=== PATIENT | female | born 1945 | race Hispanic/Latino ===

== ENCOUNTER 2017-08-27 12:26 | Outpatient (CLI) | payer MEDICARE ==
--- NOTE | 2017-09-02 18:47 | Magnetic Resonance Report ---
MR scan of the cranium was performed without contrast. Pulse sequences included: 1. T1 weighted sagittal and axial images without contrast 2. T2 weighted axial and coronal images 3. FLAIR axial images 4. Diffusion-weighted axial images 5. Apparent diffusion coefficient images Views of the posterior fossa showed a normal craniocervical junction. Cerebellar pontine angles were normal with normal seventh-eighth nerve complexes. Brainstem showed an area of increased signal in the left anterior jose ramon as well as some increased signal in the basis pontis in addition to increased signal in the mary cerebri. The cerebellum showed moderate atrophy. The ventricular system showed moderate dilatation but no distortion. Images of the hemispheres showed large areas of atrophy in the frontal lobes especially in the anterior poles. Temporal atrophy was also seen. Moderate white matter changes were present in the periventricular white matter most consistent with araiosis. Sinuses, flow voids in the [place], orbits, pituitary and basal ganglia were normal. Impression: Abnormal MR scan of the cranium without contrast. a. 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 ventricular dilation c. extensive atrophy of the frontal lobes and to some extent temporal lobes r/o fronto temporal atrophy (Pick's disease) this study was compared to the patient's previous mr of . The atrophy and the araiosis have progressed.
== END 2017-08-27 12:27 | disposition home or self-care (01) ==
LOC: SPVIMAG 12:26
PROVIDERS: ATTEND Specialist
DX: G31.89 Other specified degenerative diseases of nervous system (principal); G93.89 Other specified disorders of brain; R26.89 Other abnormalities of gait and mobility
CPT/HCPCS: 70551

== ENCOUNTER 2019-11-07 18:39 | Inpatient (IN) | payer MEDICARE ==
--- NOTE | 2019-11-07 19:18 | Event Note ---
ED Screening Note Date of service: 11/07/19 Time: 19:15 ED Screening Note: Pt complains of episode of difficulty with speech at about 3:30 pm hx of TIA +THURSTON x 3 days This initial assessment/diagnostic orders/clinical plan/treatment(s) is/are subject to change based on patients health status, clinical progression and re- assessment by fellow clinical providers in the ED. Further treatment and workup at subsequent clinical providers discretion. Patient/guardian urged not to elope from the ED as their condition may be serious if not clinically assessed and managed. Initial orders include: CT labs CXR
--- NOTE | 2019-11-07 19:59 | Cat Scan Report ---
NONENHANCED CT SCAN OF THE HEAD: INDICATION / CLINICAL INFORMATION: 74 years Female; headache, slurred speech at 3:30 pm. TECHNIQUE: Routine CT head without contrast. All CT scans at this location are performed using CT dos e reduction for ALARA by means of automated exposure control. COMPARISON: MR scan of the brain from 04/16/2016 FINDINGS: BRAIN / INTRACRANIAL CONTENTS: No acute hemorrhage, mass effect, midline shift, hydrocephalus, or ac [place], large territorial infarct. Patchy areas of volume loss is seen along the lateral convexity in benjamin th cerebral hemispheres. These remain unchanged.. As seen in the previous MRI scan, periventricular w lula matter low density areas are seen in both cerebral hemispheres due to microvascular faint angiop athy. High convexity cortical sulci are normal. Volume loss is seen in the cerebellar vermis and cerebellar hemispheres. Volume loss in the cerebella r vermis has progressed since the MRI scan. Pontine ischemia seen in the MRI scan is not obvious in t he CT. CRANIOCERVICAL JUNCTION: No significant abnormality. ORBITS: No significant abnormality of visualized orbits. SINUSES / MASTOIDS: No significant abnormality of the visualized paranasal sinuses or mastoid air lucius ls. ADDITIONAL FINDINGS: None. IMPRESSION: No hemorrhage; no stroke mimics; no CT findings to suggest acute territorial infarction. ER physician informed at 6:54 PM Central standard time Signer Name: Shayla Segura MD Signed: 11/07/2019 7:54 PM Workstation Name: [id number]
--- NOTE | 2019-11-07 20:08 | XRay Report ---
CHEST 2 VIEWS INDICATION: chest pain. COMPARISON: None. FINDINGS: Support devices: None. Heart: Within normal limits. Lungs/Pleura: No acute air space or interstitial disease. No significant pleural effusion. IMPRESSION: No acute findings. Signer Name: Ward Fraser MD Signed: 11/07/2019 8:04 PM Workstation Name: [id number]
[2019-11-07 20:14] LABS: Basophils # (Auto) 0.1 K/mm3 (0.0-0.1); Basophils % (Auto) 0.5 % (0.0-1.8); Eosinophils # (Auto) 0.3 K/mm3 (0.0-0.4); Eosinophils % (Auto) 2.5 % (0.0-4.3); Hematocrit 47.2 % (30.3-42.9); Hemoglobin 15.6 gm/dl (10.1-14.3); Lymphocytes # (Auto) 3.8 K/mm3 (1.2-5.4); Lymphocytes % (Auto) 37.6 % (13.4-35.0); Mean Corpuscular HGB Conc 33 % (30-34); Mean Corpuscular Volume 90 fl (79-97); Monocytes # (Auto) 0.7 K/mm3 (0.0-0.8); Monocytes % (Auto) 7.2 % (0.0-7.3); Platelet Count 225 K/mm3 (140-440); Red Blood Count 5.25 M/mm3 (3.65-5.03); Red Cell Distribution Width 14.2 % (13.2-15.2)
[2019-11-07 20:43] LABS: Alanine Aminotransferase 13 units/L (7-56); BUN/Creatinine Ratio 16; Blood Urea Nitrogen 11 mg/dL (7-17); Calcium 9.9 mg/dL (8.4-10.2); Hemolysis Index 8
[2019-11-07] MEDS ORDERED: ASPIRIN 325 MG TAB PO ONE (22:01)
--- NOTE | 2019-11-07 23:03 | Emergency Department Report ---
ED Neuro Deficit HPI - General Chief Complaint: Neuro Symptoms/Deficit Stated Complaint: HBP/POSS TIA Time Seen by Provider: 11/07/19 19:14 Source: patient, EMS Mode of arrival: Ambulatory Limitations: No Limitations - History of Present Illness Initial Comments: Patient is a 74-year-old female with past medical history of hypertension and TIAs in the past who is complaining of some left arm weakness and slurred speech earlier today. Patient states when she woke this morning approximately 8 AM she has some left arm weakness and heaviness. Patient states within the hour after waking the symptoms resolved. Around 2 PM patient was on the phone with a friend telling her about the weakness she had that morning and her friend noticed that she has slurred speech. Patient states this also resolved spontaneously as well. Patient's friend urged her to come to the emergency department. Patient stated when to the fire department first and her blood pressure was noted to be elevated to approximately 190 systolic. Patient denies chest pain shortness of breath or focal neurological symptoms at this time. Patient states all of her weakness and slurred speech has completely resolved. Patient states she does have hypertension and is compliant with her medications. - Related Data Allergies/Adverse Reactions: Allergies Allergy/AdvReac Type Severity Reaction Status Date / Time meperidine HCl [From Demerol] Allergy Vomiting Unverified 04/16/16 16:23 ED Review of Systems ROS: Stated complaint: HBP/POSS TIA Other details as noted in HPI Comment: All other systems reviewed and negative ED Past Medical Hx - Past Medical History Previous Medical History?: Yes Hx Hypertension: Yes Additional medical history: TIA, Glycoma, - Surgical History Past Surgical History?: No - Social History Smoking Status: Never Smoker Substance Use Type: None ED Neuro Physical Exam - General Limitations: No Limitations General appearance: alert, in no apparent distress Suspected Stroke: No - Head Head exam: Present: atraumatic, normocephalic - Eye Eye exam: Present: normal appearance, PERRL, EOMI - ENT ENT exam: Present: normal orophraynx, mucous membranes moist - Neck Neck exam: Present: normal inspection - Respiratory Respiratory exam: Present: normal lung sounds bilaterally. Absent: respiratory distress, wheezes, rales, rhonchi - Cardiovascular Cardiovascular Exam: Present: regular rate, normal rhythm, normal heart sounds. Absent: systolic murmur, diastolic murmur, rubs, gallop - GI/Abdominal GI/Abdominal exam: Present: soft, normal bowel sounds. Absent: distended, tenderness, guarding - Extremities Exam Extremities exam: Present: normal inspection - Back Exam Back exam: Present: normal inspection - Neurological Exam Neurological exam: Present: alert, oriented X3 - NIHSS Assessment Interval: Baseline 1a. Level of Consciousness: alert/keenly responsive 1b. LOC Questions: answers both correctly 1c. LOC Commands: performs tasks correctly 2. Best Gaze: normal 3. Visual: no visual loss 4. Facial Palsy: normal symmetrical movement 5b. Motor Arm Right: no drift 5a. Motor Arm Left: no drift 6a. Motor Leg Left: no drift 6b. Motor Leg Right: no drift 7. Limb Ataxia: absent 8. Sensory: normal 9. Best Language: no aphasia 10. Dysarthria: normal 11. Extinction/Inattention: no abnormality Total Score: 0 Stroke Severity: No Stroke Symptoms - Psychiatric Psychiatric exam: Present: normal affect, normal mood - Skin Skin exam: Present: warm, dry, intact, normal color. Absent: rash ED Course Vital Signs 11/07/19 11/07/19 19:22 22:42 Temperature 98.0 F 98.4 F Pulse Rate 74 81 Respiratory 20 13 Rate Blood Pressure 200/97 187/102 [Left] O2 Sat by Pulse 98 Oximetry - Lab Data Result diagrams: 11/07/19 19:59 11/07/19 19:59 Lab Results 11/07/19 11/07/19 Range/Units 19:59 19:59 WBC 10.2 (4.5-11.0) K/mm3 RBC 5.25 H (3.65-5.03) M/mm3 Hgb 15.6 H (10.1-14.3) gm/dl Hct 47.2 H (30.3-42.9) % MCV 90 (79-97) fl MCH 30 (28-32) pg MCHC 33 (30-34) % RDW 14.2 (13.2-15.2) % Plt Count 225 (140-440) K/mm3 Lymph % (Auto) 37.6 H (13.4-35.0) % [place] % (Auto) 7.2 (0.0-7.3) % Eos % (Auto) 2.5 (0.0-4.3) % Baso % (Auto) 0.5 (0.0-1.8) % Lymph # 3.8 (1.2-5.4) K/mm3 [place] # 0.7 (0.0-0.8) K/mm3 Eos # 0.3 (0.0-0.4) K/mm3 Baso # 0.1 (0.0-0.1) K/mm3 Seg Neutrophils % 52.2 (40.0-70.0) % Seg Neutrophils # 5.3 (1.8-7.7) K/mm3 Sodium 143 (137-145) mmol/L Potassium 4.1 (3.6-5.0) mmol/L Chloride 102.1 (98-107) mmol/L Carbon Dioxide 26 (22-30) mmol/L Anion Gap 19 mmol/L BUN 11 (7-17) mg/dL Creatinine 0.7 (0.7-1.2) mg/dL Estimated GFR > 60 ml/min BUN/Creatinine Ratio 16 % Glucose 124 H (65-100) mg/dL Calcium 9.9 (8.4-10.2) mg/dL Total Bilirubin 0.30 (0.1-1.2) mg/dL AST 20 (5-40) units/L ALT 13 (7-56) units/L Alkaline Phosphatase 89 (35-129) units/L Troponin T < 0.010 (0.00-0.029) ng/mL Total Protein 7.5 (6.3-8.2) g/dL Albumin 4.0 (3.9-5) g/dL Albumin/Globulin Ratio 1.1 % - EKG Data -: EKG Interpreted by Pr EKG shows normal: sinus rhythm, axis, intervals, QRS complexes, ST-T waves Rate: normal Interpretation: normal EKG (so for isolated PAC) - Radiology Data Ordering Physician: KATHARINE KEBEDE Date of Service: 11/07/19 Procedure(s): CT head/brain wo con Accession Number(s): [id number] cc: KATHARINE KEBEDE NONENHANCED CT SCAN OF THE HEAD: INDICATION / CLINICAL INFORMATION: 74 years Female; headache, slurred speech at 3:30 pm. TECHNIQUE: Routine CT head without contrast. All CT scans at this location are performed using CT dose reduction for ALARA by means of automated exposure control. COMPARISON: MR scan of the brain from 04/16/2016 FINDINGS: BRAIN / INTRACRANIAL CONTENTS: No acute hemorrhage, mass effect, midline shift, hydrocephalus, or acute, large territorial infarct. Patchy areas of volume loss is seen along the lateral convexity in both cerebral hemispheres. These remain unchanged.. As seen in the previous MRI scan, periventricular white matter low density areas are seen in both cerebral hemispheres due to microvascular faint angiopathy. High convexity cortical sulci are normal. Volume loss is seen in the cerebellar vermis and cerebellar hemispheres. Volume loss in the cerebellar vermis has progressed since the MRI scan. Pontine ischemia seen in the MRI scan is not obvious in the CT. CRANIOCERVICAL JUNCTION: No significant abnormality. ORBITS: No significant abnormality of visualized orbits. SINUSES / MASTOIDS: No significant abnormality of the visualized paranasal sinuses or mastoid air cells. ADDITIONAL FINDINGS: None. IMPRESSION: No hemorrhage; no stroke mimics; no CT findings to suggest acute territorial infarction. ER physician informed at 6:54 PM Central standard time Signer Name: Shayla Segura MD Signed: 11/07/2019 7:54 PM Workstation Name: [id number] - Medical Decision Making Patient is a 74-year-old female with history of hypertension who had 2 episodes of neurological deficits today. Both of these episodes have resolved. Patient admitted for observation. Critical care attestation.: If time is entered above; I have spent that time in minutes in the direct care of this critically ill patient, excluding procedure time. ED Disposition Clinical Impression: TIA (transient ischemic attack), Hypertensive urgency, malignant Disposition: DC-09 OP ADMIT IP TO THIS HOSP Is pt being admited?: Yes Does the pt Need Aspirin: No Condition: Stable Time of Disposition: 23:04
[2019-11-07] MEDS ORDERED: MAGNESIUM HYDROXIDE (MOM) ORAL LIQD UDC PO PRN (23:41)
[2019-11-07] MEDS ORDERED: ONDANSETRON 4 MG/2 ML INJ IV PRN (23:41)
--- NOTE | 2019-11-07 23:43 | History and Physical Report ---
History of Present Illness History of present illness: 74-year-old male with history of hypertension, TIA states she is compliant with medication comes emergency room for evaluation. She stated that she started having left arm numbness that lasted for 30 minutes after which it subsided. Around 330 and she is developed slurred speech she called her friend who urged her to go to the emergency room for evaluation. However they went to the fire station her blood pressure was very high so they sent her to the emergency room. Slurred speech lasted for an hour, she states she is back to baseline. Patient is being admitted for TIA work, hypertension malignant Review Of Systems: Constitutional: no weight loss, chills Ears, eyes, nose, mouth and throat: no nasal congestion, no nasal discharge, no sinus pressure, blurry vision, diplopia Neck: No neck pain or rigidity. Cardiovascular: No palpitations, chest pain Respiratory: No cough, shortness of breath Gastrointestinal: No hematochezia Genitourinary : no dysuria, frequency , hematuria Musculoskeletal: no muscle ache , joint pain Integumentary: no rash, no pruritis Neurological: no parathesias, focal weakness Endocrine: no cold or heat intolerance, no polyuria or polydipsia Hematologic/Lymphatic: no easy bruising, no easy bleeding, no gland swelling Allergic/Immunologic: no urticaria, no angioedema. PAST MEDICAL HISTORY:hypertension, TIA PAST SURGICAL HISTORY: Hysterectomy, cholecystectomy FAMILY HISTORY:hypertension, diabetes SOCIAL HISTORY: no tobacco, no drugs, alcohol Medications and Allergies Allergies Allergy/AdvReac Type Severity Reaction Status Date / Time meperidine HCl [From Demerol] Allergy Vomiting Verified 11/07/19 23:56 Exam - Physical Exam Narrative exam: Gen. appearance: Patient lying in bed, no apparent distress HEENT: Normocephalic, atraumatic, pupils equally round and reactive to light, extraocular movement intact, and no sclericterus,. No JVD or thyromegaly or nodule,neck supple, no carotid bruit ,mucous membranes moist, no exudate or erythema Heart: S1, S2, regular rate and rhythm Lungs: Clear to auscultation bilaterally, breathing comfortable Abdomen: Positive bowel sounds, nontender, nondistended, no organomegaly Extremity: No edema, cyanosis, clubbing Skin: No rash, nodules, warm, dry Neuro: Oriented 3, cranial nerves II-12 intact, speech is fluent, motor and sensory intact - Constitutional Vitals: Temp Pulse Resp BP Pulse Ox 98.4 F 81 13 185/92 98 11/07/19 22:42 11/07/19 23:08 11/07/19 22:42 11/07/19 23:08 11/07/19 19:22 Results - Labs CBC & Chem 7: 11/07/19 19:59 11/07/19 19:59 Labs: Abnormal lab results 11/07/19 11/07/19 Range/Units 19:59 19:59 RBC 5.25 H (3.65-5.03) M/mm3 Hgb 15.6 H (10.1-14.3) gm/dl Hct 47.2 H (30.3-42.9) % Lymph % (Auto) 37.6 H (13.4-35.0) % Glucose 124 H (65-100) mg/dL - Imaging and Cardiology Chest x-ray: report reviewed CT Scan - head: report reviewed Assessment and Plan Assessment Acute TIA Obtain MRI of the head and neck, echo Do neuro checks consult screen Consult neurology, PT, OT Start aspirin, statin, check lipid profile Hypertension Start IV hydralazine for blood pressure control DVT prophylax
[2019-11-08] MEDS ORDERED: hydrALAZINE 20 MG/1 ML INJ ONE (01:10)
[2019-11-08] MEDS: hydrALAZINE 20 MG/1 ML INJ IV PRN ×3 (01:42→21:25)
[2019-11-08] MEDS ORDERED: ONDANSETRON 4 MG/2 ML INJ ONE (02:23)
[2019-11-08] MEDS ORDERED: ACETAMINOPHEN 325 MG TAB ONE (08:09)
[2019-11-08] MEDS: ACETAMINOPHEN 325 MG TAB PO PRN ×2 (08:11→22:27)
--- NOTE | 2019-11-08 08:27 | Progress Note ---
Subjective Date of service: 11/08/19 Interval history: neurology note reviewed over all the labs / Imaging studies / clinical notes / course of care in the ED the CT shows 4 plus very striking severe degenerative changes both yun and white mattwer... would be very difficult to detect stroke since there is so little intact normal brain present ,,, brain is profoundly atrophic Objective - Vital Sign Vital Signs - 12hr 11/07/19 11/07/19 11/07/19 22:38 22:42 22:45 Temperature 98.4 F Pulse Rate 81 77 Respiratory 13 14 Rate Blood Pressure 149/83 191/92 Blood Pressure 187/102 [Left] O2 Sat by Pulse 93 88 Oximetry 11/07/19 11/07/19 11/07/19 23:01 23:08 23:15 Temperature Pulse Rate 80 81 76 Respiratory 17 17 Rate Blood Pressure 180/93 185/92 159/76 Blood Pressure [Left] O2 Sat by Pulse 97 97 Oximetry 11/07/19 11/07/19 11/08/19 23:31 23:45 00:01 Temperature Pulse Rate 77 74 78 Respiratory 13 15 16 Rate Blood Pressure 201/107 192/88 167/84 Blood Pressure [Left] O2 Sat by Pulse 92 98 97 Oximetry 11/08/19 11/08/19 11/08/19 00:15 00:31 00:45 Temperature Pulse Rate 80 84 84 Respiratory 13 16 14 Rate Blood Pressure 171/94 197/70 193/85 Blood Pressure [Left] O2 Sat by Pulse 97 98 99 Oximetry 11/08/19 11/08/19 11/08/19 01:01 01:15 01:30 Temperature Pulse Rate 87 80 84 Respiratory 12 16 20 Rate Blood Pressure 185/86 190/88 176/84 Blood Pressure [Left] O2 Sat by Pulse 99 97 96 Oximetry 11/08/19 11/08/19 11/08/19 01:42 01:45 02:00 Temperature Pulse Rate 84 87 90 Respiratory 18 13 Rate Blood Pressure 193/85 162/82 146/77 Blood Pressure [Left] O2 Sat by Pulse 97 97 Oximetry 11/08/19 11/08/19 11/08/19 02:15 02:31 02:45 Temperature Pulse Rate 100 H 88 89 Respiratory 13 20 13 Rate Blood Pressure 146/77 163/67 164/76 Blood Pressure [Left] O2 Sat by Pulse 96 95 97 Oximetry 11/08/19 11/08/19 11/08/19 03:00 03:15 03:30 Temperature Pulse Rate 90 89 94 H Respiratory 15 16 17 Rate Blood Pressure 163/77 176/81 168/84 Blood Pressure [Left] O2 Sat by Pulse 95 95 96 Oximetry 11/08/19 11/08/19 11/08/19 03:45 04:00 04:15 Temperature Pulse Rate 99 H 97 H 94 H Respiratory 18 17 19 Rate Blood Pressure 168/84 189/77 183/81 Blood Pressure [Left] O2 Sat by Pulse 96 96 96 Oximetry 11/08/19 11/08/19 11/08/19 04:30 04:45 05:01 Temperature Pulse Rate 100 H 106 H 105 H Respiratory 16 18 16 Rate Blood Pressure 190/82 213/84 172/73 Blood Pressure [Left] O2 Sat by Pulse 96 95 96 Oximetry 11/08/19 11/08/19 11/08/19 05:15 05:31 05:45 Temperature Pulse Rate 106 H 109 H 109 H Respiratory 22 15 15 Rate Blood Pressure 170/93 200/87 171/92 Blood Pressure [Left] O2 Sat by Pulse 96 96 97 Oximetry 11/08/19 07:42 Temperature Pulse Rate 112 H Respiratory 21 Rate Blood Pressure Blood Pressure 121/61 [Left] O2 Sat by Pulse 97 Oximetry - Laboratory Findings CBC and BMP: 11/07/19 19:59 11/07/19 19:59 Abnormal Lab Findings: Abnormal Labs 11/07/19 11/07/19 19:59 19:59 RBC 5.25 H Hgb 15.6 H Hct 47.2 H Lymph % (Auto) 37.6 H Glucose 124 H
[2019-11-08 09:40] LABS: Chol/HDL Ratio 2.08 %
[2019-11-08] MEDS: ASPIRIN 325 MG TAB PO SCH (10:35)
[2019-11-08] MEDS ORDERED: ASPIRIN 325 MG TAB ONE (10:41)
--- NOTE | 2019-11-08 17:12 | Progress Note ---
Assessment and Plan Assessment and plan: Patient is a 74-year-old female with past medical history of hypertension and TIAs in the past who is complaining of some left arm weakness and slurred speech earlier today. Patient states when she woke this morning approximately 8 AM she has some left arm weakness and heaviness. Patient states within the hour after waking the symptoms resolved. Around 2 PM patient was on the phone with a friend telling her about the weakness she had that morning and her friend noticed that she has slurred speech. Patient states this also resolved spontaneously as well. Was admitted to the hospital for stroke protocol, not a candidate for TPA --Acute CVA/ TIA Not a candidate for TPA Aspirin and statin Neuro workup, MRI/MRA carotid Doppler echocardiogram Urology consult PT OT rehabilitation Lipid panel, permissive hypertension --Hypertension; Per stroke protocol --Obesity; BMI 34.6 Advised weight reduction and medically stable --DVT prophylaxis; Lovenox Monitor clinically and adjust management as needed Plan of care is reviewed with the patient and her nurse History Interval history: Patient seen and examined medical records reviewed Admitted with neuro symptoms Patient has no new complaints weakness significantly improved Hospitalist Physical - Constitutional Vitals: Temp Pulse Resp BP Pulse Ox 98.0 F 92 H 18 188/108 98 11/08/19 11:55 11/08/19 13:31 11/08/19 13:31 11/08/19 12:23 11/08/19 13:31 General appearance: Present: no acute distress, well-nourished - EENT Eyes: Present: PERRL, EOM intact - Neck Neck: Present: supple, normal ROM - Respiratory Respiratory effort: normal Respiratory: bilateral: diminished, negative: rales, rhonchi, wheezing - Cardiovascular Rhythm: regular Heart Sounds: Present: S1 & S2 - Extremities Extremities: no ischemia, No edema - Abdominal General gastrointestinal: soft, non-tender, non-distended, normal bowel sounds - Integumentary Integumentary: Present: clear, warm - Psychiatric Psychiatric: appropriate mood/affect, cooperative - Neurologic Neurologic: CNII-XII intact, moves all extremities Results - Labs CBC & Chem 7: 11/07/19 19:59 11/07/19 19:59 Labs: Laboratory Last Values WBC 10.2 K/mm3 (4.5-11.0) 11/07/19 19:59 RBC 5.25 M/mm3 (3.65-5.03) H 11/07/19 19:59 Hgb 15.6 gm/dl (10.1-14.3) H 11/07/19 19:59 Hct 47.2 % (30.3-42.9) H 11/07/19 19:59 MCV 90 fl (79-97) 11/07/19 19:59 MCH 30 pg (28-32) 11/07/19 19:59 MCHC 33 % (30-34) 11/07/19 19:59 RDW 14.2 % (13.2-15.2) 11/07/19 19:59 Plt Count 225 K/mm3 (140-440) 11/07/19 19:59 Lymph % (Auto) 37.6 % (13.4-35.0) H 11/07/19 19:59 [place] % (Auto) 7.2 % (0.0-7.3) 11/07/19 19:59 Eos % (Auto) 2.5 % (0.0-4.3) 11/07/19 19:59 Baso % (Auto) 0.5 % (0.0-1.8) 11/07/19 19:59 Lymph # 3.8 K/mm3 (1.2-5.4) 11/07/19 19:59 [place] # 0.7 K/mm3 (0.0-0.8) 11/07/19 19:59 Eos # 0.3 K/mm3 (0.0-0.4) 11/07/19 19:59 Baso # 0.1 K/mm3 (0.0-0.1) 11/07/19 19:59 Seg Neutrophils % 52.2 % (40.0-70.0) 11/07/19 19:59 Seg Neutrophils # 5.3 K/mm3 (1.8-7.7) 11/07/19 19:59 Sodium 143 mmol/L (137-145) 11/07/19 19:59 Potassium 4.1 mmol/L (3.6-5.0) 11/07/19 19:59 Chloride 102.1 mmol/L (98-107) 11/07/19 19:59 Carbon Dioxide 26 mmol/L (22-30) 11/07/19 19:59 Anion Gap 19 mmol/L 11/07/19 19:59 BUN 11 mg/dL (7-17) 11/07/19 19:59 Creatinine 0.7 mg/dL (0.7-1.2) 11/07/19 19:59 Estimated GFR > 60 ml/min 11/07/19 19:59 BUN/Creatinine Ratio 16 % 11/07/19 19:59 Glucose 124 mg/dL (65-100) H 11/07/19 19:59 Calcium 9.9 mg/dL (8.4-10.2) 11/07/19 19:59 Total Bilirubin 0.30 mg/dL (0.1-1.2) 11/07/19 19:59 AST 20 units/L (5-40) 11/07/19 19:59 ALT 13 units/L (7-56) 11/07/19 19:59 Alkaline Phosphatase 89 units/L (35-129) 11/07/19 19:59 Troponin T < 0.010 ng/mL (0.00-0.029) 11/07/19 19:59 Total Protein 7.5 g/dL (6.3-8.2) 11/07/19 19:59 Albumin 4.0 g/dL (3.9-5) 11/07/19 19:59 Albumin/Globulin Ratio 1.1 % 11/07/19 19:59 Triglycerides 117 mg/dL (2-149) 11/08/19 08:52 Cholesterol 146 mg/dL (50-199) 11/08/19 08:52 LDL Cholesterol Direct 66 mg/dL (50-130) 11/08/19 08:52 HDL Cholesterol 70 mg/dL (40-59) H 11/08/19 08:52 Cholesterol/HDL Ratio 2.08 % 11/08/19 08:52 Active Medications - Current Medications Current Medications: Generic Name Dose Route Start Last Admin Trade Name Freq PRN Reason Stop Dose Admin Acetaminophen 650 mg 11/07/19 23:41 11/08/19 08:11 Tylenol PO 650 mg Q4H PRN Administration Pain, Mild (1-3) Aspirin 325 mg 11/08/19 10:00 11/08/19 10:35 Aspirin PO 325 mg QDAY GODWIN Administration Atorvastatin Calcium 40 mg 11/08/19 22:00 Lipitor PO QHS GODWIN Bisacodyl 10 mg 11/07/19 23:41 Dulcolax [place] QDAY PRN Constipation Hydralazine HCl 5 mg 11/07/19 23:43 11/08/19 12:23 Apresoline IV 5 mg Q6H PRN Administration Hypertension Magnesium Hydroxide 30 ml 11/07/19 23:41 Milk Of Magnesia PO Q4H PRN Constipation Ondansetron HCl 4 mg 11/07/19 23:41 11/08/19 02:28 Zofran IV 4 mg Q8H PRN Administration Nausea And Vomiting Sodium Chloride 10 ml 11/07/19 23:41 Sodium Chloride Flush Syringe 10 Ml IV PRN PRN LINE FLUSH
[2019-11-08] MEDS ORDERED: METOPROLOL TARTRATE 25 MG TAB PO ONE (18:00)
[2019-11-08] MEDS: METOPROLOL TARTRATE 25 MG TAB PO SCH (21:26)
[2019-11-08] MEDS: ENOXAPARIN 40 MG/0.4 ML INJ SUB-Q SCH (21:26)
[2019-11-09] MEDS ORDERED: NITROGLYCERIN 0.4 MG TAB SUBL SL PRN (02:01)
[2019-11-09] MEDS ORDERED: MORPHINE 2 MG/1 ML INJ IV PRN (02:01)
--- NOTE | 2019-11-09 02:02 | Event Note ---
Date: 11/09/19 Patient complains of nonradiating chest pressure which she rates 4/10. Notified by telemetry patient had 4 beat run of V. tach. Stat EKG was performed which showed sinus tach with a regular heart rate. Stat cardiac enzymes ordered and cardiology consulted
--- NOTE | 2019-11-09 07:54 | Progress Note ---
Subjective Date of service: 11/09/19 Interval history: went over the details of the event note EKG ordered and the enzymes are ordered BP is trending better will follow up on MRI today Objective - Vital Sign Vital Signs - 12hr 11/08/19 11/08/19 11/09/19 21:17 21:20 00:00 Temperature 98.9 F Pulse Rate 85 96 H 110 H Respiratory 18 Rate Blood Pressure Blood Pressure 175/94 [Left] O2 Sat by Pulse 97 96 Oximetry 11/09/19 11/09/19 00:23 05:22 Temperature 97.8 F 98.0 F Pulse Rate 113 H 103 H Respiratory 18 18 Rate Blood Pressure 164/73 154/79 Blood Pressure [Left] O2 Sat by Pulse 99 96 Oximetry - Laboratory Findings CBC and BMP: 11/07/19 19:59 11/07/19 19:59 Abnormal Lab Findings: Abnormal Labs 11/07/19 11/07/19 11/08/19 19:59 19:59 08:52 RBC 5.25 H Hgb 15.6 H Hct 47.2 H Lymph % (Auto) 37.6 H Glucose 124 H CK-MB (CK-2) CK-MB (CK-2) Rel Index HDL Cholesterol 70 H 11/09/19 03:01 RBC Hgb Hct Lymph % (Auto) Glucose CK-MB (CK-2) 7.0 H CK-MB (CK-2) Rel Index 9.0 H HDL Cholesterol
[2019-11-09 08:29] LABS: Creatine Kinase MB 6.9 ng/mL (0.0-4.0)
[2019-11-09] MEDS: ASPIRIN 325 MG TAB PO SCH (10:00)
[2019-11-09] MEDS: METOPROLOL TARTRATE 25 MG TAB PO SCH ×2 (10:13→22:20)
--- NOTE | 2019-11-09 11:40 | Consultation ---
History of Present Illness Consult date: 11/09/19 Consult reason: arrhythmia History of present illness: This is a 74-year old woman who presented 2 days ago with left upper extremity weakness and dysarthria. Neurological deficits has since resolved. Head CT scan reports no acute intracranial abnormalities. An echocardiogram shows a normal left ventricular systolic function, ejection fraction 65-70%. Bubble study is negative. Further neurology workup is in process. Overnight, there was a short burst of wide complex tachycardia followed with transient atrial fibrillation on telemetry. She returned to stable sinus rhythm with no specific treatment. There is no history of atrial fibrillation. A cardiac consultation has been requested for further evaluation and management. Medications and Allergies Allergies Allergy/AdvReac Type Severity Reaction Status Date / Time meperidine HCl [From Demerol] Allergy Vomiting Verified 11/07/19 23:56 Active Meds: Active Medications Acetaminophen (Tylenol) 650 mg PO Q4H PRN PRN Reason: Pain, Mild (1-3) Last Admin: 11/08/19 22:27 Dose: 650 mg Documented by: Aspirin (Aspirin) 325 mg PO QDAY [facility] Last Admin: 11/09/19 10:00 Dose: 325 mg Documented by: Atorvastatin Calcium (Lipitor) 40 mg PO QHS [facility] Last Admin: 11/08/19 21:26 Dose: 40 mg Documented by: Bisacodyl (Dulcolax) 10 mg [place] QDAY PRN PRN Reason: Constipation Enoxaparin Sodium (Enoxaparin) 40 mg SUB-Q QDAY@2200 [facility] Last Admin: 11/08/19 21:26 Dose: 40 mg Documented by: Hydralazine HCl (Apresoline) 5 mg IV Q6H PRN PRN Reason: Hypertension Last Admin: 11/08/19 21:25 Dose: 5 mg Documented by: Magnesium Hydroxide (Milk Of Magnesia) 30 ml PO Q4H PRN PRN Reason: Constipation Metoprolol Tartrate (Metoprolol) 12.5 mg PO BID [facility] Last Admin: 11/09/19 10:13 Dose: 12.5 mg Documented by: Morphine Sulfate (Morphine) 2 mg IV Q4H PRN PRN Reason: Pain, Moderate (4-6) Nitroglycerin (Nitrostat) 0.4 mg SL .Q5MIN PRN PRN Reason: Chest Pain Ondansetron HCl (Zofran) 4 mg IV Q8H PRN PRN Reason: Nausea And Vomiting Last Admin: 11/08/19 02:28 Dose: 4 mg Documented by: Sodium Chloride (Sodium Chloride Flush Syringe 10 Ml) 10 ml IV PRN PRN PRN Reason: LINE FLUSH Last Admin: 11/08/19 21:28 Dose: 10 ml Documented by: Physical Examination Vital Signs Temp Pulse Resp BP Pulse Ox 98.0 F 74 20 200/97 98 11/07/19 19:22 11/07/19 19:22 11/07/19 19:22 11/07/19 19:22 11/07/19 19:22 Results 11/07/19 19:59 11/07/19 19:59 Cardiac Enzymes 11/09/19 11/09/19 Range/Units 03:01 06:43 CK-MB (CK-2) 7.0 H 6.9 H (0.0-4.0) ng/mL
--- NOTE | 2019-11-09 12:43 | Magnetic Resonance Report ---
MRI BRAIN WITHOUT CONTRAST INDICATION / CLINICAL INFORMATION: stroke. TECHNIQUE: Multiplanar, multisequence MR images of the brain were obtained. COMPARISON: The study is compared to the previous MRI of 08/27/2017. FINDINGS: There is continued extensive cerebral and pontine white matter disease most consistent with advanced microvascular angiopathy at. There are old small lacunar infarcts involving the basal gangl ia and left jose ramon at. The findings correlate with previous exam of. On the diffusion imaging, there is a 4-5 mm focus of mild increased signal along the posterior right parietal subcortical region. A more subtle focus is seen anteriorly along the right frontal subcortic al region. Correlation would be needed regarding small foci of subacute infarction. On the susceptibility weighted imaging, there are multiple scattered small foci of marked decreased s ignal, particularly involving the basal ganglia, thalami and brainstem. Findings be a most consistent with chronic microhemorrhages though may also be seen with cerebral amyloidosis. There is continued advanced cerebral atrophy, most notably involving frontal and temporal lobes as pr eviously described. There is associated prominence of the ventricular system. There is also notable c erebellar atrophy. CRANIOCERVICAL JUNCTION: There is no significant stenosis at the craniocervical junction. VASCULAR FLOW-VOIDS: No significant abnormality. ORBITS: No significant abnormality of visualized orbits. SINUSES / MASTOIDS: No significant abnormality of the visualized paranasal sinuses or mastoid air lucius ls. ADDITIONAL FINDINGS: None. IMPRESSION: 1. There is continued extensive microvascular angiopathy as detailed above. The small foci of subtle increased diffusion signal along the right parietal and frontal subcortical regions may reflect small a subacute to infarcts. 2. There is also persistent advanced to cerebral atrophy, most notably involving frontal and temporal lobes. Signer Name: Cheng Chung MD Signed: 11/09/2019 12:39 PM Workstation Name: [id number]
--- NOTE | 2019-11-09 12:47 | Magnetic Resonance Report ---
MR MRA/MRV head wo con INDICATION / CLINICAL INFORMATION: 74 years Female; stroke. TECHNIQUE: 3-D time of flight. NASCET type criteria used to evaluate stenoses. COMPARISON: None available. FINDINGS: INTERNAL CAROTID ARTERIES: The motion degrades image quality at. However, there appears be mild ather osclerotic calcification involving the distal internal carotid arteries without clear evidence of sig nificant focal stenosis by NASCET criteria. VERTEBROBASILAR SYSTEM: No significant narrowing appreciated. DISTAL BRANCHES: The proximal cerebral arteries are also degraded by the degree of motion with sugges tion of mild diffuse atherosclerotic disease at. There appears be a mild to moderate focal stenosis a t the left MCA trifurcation. Milder narrowing is seen on the right. ANEURYSM: None identified. IMPRESSION: The motion degrades image quality at. However, there appears be mild diffuse atherosclerotic calcific ation involving intracranial vessels as described with mild to moderate focal stenosis involving the left MCA trifurcation. Signer Name: Cheng Chung MD Signed: 11/09/2019 12:43 PM Workstation Name: [id number]
--- NOTE | 2019-11-09 13:21 | Progress Note ---
Assessment and Plan Assessment and plan: Patient is a 74-year-old female with past medical history of hypertension and TIAs in the past who is complaining of some left arm weakness and slurred speech earlier today. Patient states when she woke this morning approximately 8 AM she has some left arm weakness and heaviness. Patient states within the hour after waking the symptoms resolved. Around 2 PM patient was on the phone with a friend telling her about the weakness she had that morning and her friend noticed that she has slurred speech. Patient states this also resolved spontaneously as well. Was admitted to the [facility] for stroke protocol, not a candidate for TPA Neuro workup so far; MRI small foci of surgical increased diffusion signal along the right maxilla and frontal subcortical lesions may reflect small subacute infarct Persistent advanced cerebral atrophy involving the frontal and temporal MRA:: Mild to moderate focal stenosis involving the left MCA. Trifurcation CT head without contrast; no hemorrhoidsstroke Echo; LDH ,EF 65-70%, --Acute CVA[small subacute infarct right frontal area] Not a candidate for TPA Aspirin and statin Allergy following PT OT rehabilitation Lipid panel, permissive hypertension --Hypertension; controlled Continue current antihypertensives and when necessary medications --Obesity; BMI 34.6 Advised weight reduction and medically stable --DVT prophylaxis; Lovenox Monitor clinically and adjust management as needed Plan of care is reviewed with the patient and her nurse Disposition; follow consultants recommendations Discharge when medically stable History Interval history: Patient seen and examined medical records reviewed Neuro workup is in progress The patient feels better no new complaints Vital signs noted Hospitalist Physical - Constitutional Vitals: Temp Pulse Resp BP Pulse Ox 97.5 F L 94 H 18 150/75 97 11/09/19 09:13 11/09/19 10:13 11/09/19 09:13 11/09/19 10:13 11/09/19 09:13 General appearance: Present: no acute distress, well-nourished - EENT Eyes: Present: PERRL, EOM intact - Neck Neck: Present: supple, normal ROM - Respiratory Respiratory effort: normal Respiratory: bilateral: diminished, negative: rales, rhonchi, wheezing - Cardiovascular Rhythm: regular Heart Sounds: Present: S1 & S2 - Extremities Extremities: no ischemia, No edema - Abdominal General gastrointestinal: soft, non-tender, non-distended, normal bowel sounds - Integumentary Integumentary: Present: clear, warm - Psychiatric Psychiatric: appropriate mood/affect - Neurologic Neurologic: CNII-XII intact, moves all extremities Results - Labs CBC & Chem 7: 11/07/19 19:59 11/07/19 19:59 Labs: Laboratory Last Values WBC 10.2 K/mm3 (4.5-11.0) 11/07/19 19:59 RBC 5.25 M/mm3 (3.65-5.03) H 11/07/19 19:59 Hgb 15.6 gm/dl (10.1-14.3) H 11/07/19 19:59 Hct 47.2 % (30.3-42.9) H 11/07/19 19:59 MCV 90 fl (79-97) 11/07/19 19:59 MCH 30 pg (28-32) 11/07/19 19:59 MCHC 33 % (30-34) 11/07/19 19:59 RDW 14.2 % (13.2-15.2) 11/07/19 19:59 Plt Count 225 K/mm3 (140-440) 11/07/19 19:59 Lymph % (Auto) 37.6 % (13.4-35.0) H 11/07/19 19:59 [place] % (Auto) 7.2 % (0.0-7.3) 11/07/19 19:59 Eos % (Auto) 2.5 % (0.0-4.3) 11/07/19 19:59 Baso % (Auto) 0.5 % (0.0-1.8) 11/07/19 19:59 Lymph # 3.8 K/mm3 (1.2-5.4) 11/07/19 19:59 [place] # 0.7 K/mm3 (0.0-0.8) 11/07/19 19:59 Eos # 0.3 K/mm3 (0.0-0.4) 11/07/19 19:59 Baso # 0.1 K/mm3 (0.0-0.1) 11/07/19 19:59 Seg Neutrophils % 52.2 % (40.0-70.0) 11/07/19 19:59 Seg Neutrophils # 5.3 K/mm3 (1.8-7.7) 11/07/19 19:59 Sodium 143 mmol/L (137-145) 11/07/19 19:59 Potassium 4.1 mmol/L (3.6-5.0) 11/07/19 19:59 Chloride 102.1 mmol/L (98-107) 11/07/19 19:59 Carbon Dioxide 26 mmol/L (22-30) 11/07/19 19:59 Anion Gap 19 mmol/L 11/07/19 19:59 BUN 11 mg/dL (7-17) 11/07/19 19:59 Creatinine 0.7 mg/dL (0.7-1.2) 11/07/19 19:59 Estimated GFR > 60 ml/min 11/07/19 19:59 BUN/Creatinine Ratio 16 % 11/07/19 19:59 Glucose 124 mg/dL (65-100) H 11/07/19 19:59 Calcium 9.9 mg/dL (8.4-10.2) 11/07/19 19:59 Total Bilirubin 0.30 mg/dL (0.1-1.2) 11/07/19 19:59 AST 20 units/L (5-40) 11/07/19 19:59 ALT 13 units/L (7-56) 11/07/19 19:59 Alkaline Phosphatase 89 units/L (35-129) 11/07/19 19:59 Total Creatine Kinase 65 units/L (30-135) 11/09/19 06:43 CK-MB (CK-2) 6.9 ng/mL (0.0-4.0) H 11/09/19 06:43 CK-MB (CK-2) Rel Index 10.6 (0-4) H 11/09/19 06:43 Troponin T < 0.010 ng/mL (0.00-0.029) 11/09/19 06:43 Total Protein 7.5 g/dL (6.3-8.2) 11/07/19 19:59 Albumin 4.0 g/dL (3.9-5) 11/07/19 19:59 Albumin/Globulin Ratio 1.1 % 11/07/19 19:59 Triglycerides 117 mg/dL (2-149) 11/08/19 08:52 Cholesterol 146 mg/dL (50-199) 11/08/19 08:52 LDL Cholesterol Direct 66 mg/dL (50-130) 11/08/19 08:52 HDL Cholesterol 70 mg/dL (40-59) H 11/08/19 08:52 Cholesterol/HDL Ratio 2.08 % 11/08/19 08:52 Active Medications - Current Medications Current Medications: Generic Name Dose Route Start Last Admin Trade Name Freq PRN Reason Stop Dose Admin Acetaminophen 650 mg 11/07/19 23:41 11/08/19 22:27 Tylenol PO 650 mg Q4H PRN Administration Pain, Mild (1-3) Aspirin 325 mg 11/08/19 10:00 11/09/19 10:00 Aspirin PO 325 mg QDAY GODWIN Administration Atorvastatin Calcium 40 mg 11/08/19 22:00 11/08/19 21:26 Lipitor PO 40 mg QHS GODWIN Administration Bisacodyl 10 mg 11/07/19 23:41 Dulcolax [place] QDAY PRN Constipation Enoxaparin Sodium 40 mg 11/08/19 22:00 11/08/19 21:26 Enoxaparin SUB-Q 40 mg QDAY@2200 GODWIN Administration Hydralazine HCl 5 mg 11/07/19 23:43 11/08/19 21:25 Apresoline IV 5 mg Q6H PRN Administration Hypertension Magnesium Hydroxide 30 ml 11/07/19 23:41 Milk Of Magnesia PO Q4H PRN Constipation Metoprolol Tartrate 12.5 mg 11/08/19 22:00 11/09/19 10:13 Metoprolol PO 12.5 mg BID GODWIN Administration Morphine Sulfate 2 mg 11/09/19 02:01 Morphine IV Q4H PRN Pain, Moderate (4-6) Nitroglycerin 0.4 mg 11/09/19 02:01 Nitrostat SL .Q5MIN PRN Chest Pain Ondansetron HCl 4 mg 11/07/19 23:41 11/08/19 02:28 Zofran IV 4 mg Q8H PRN Administration Nausea And Vomiting Sodium Chloride 10 ml 11/07/19 23:41 11/08/19 21:28 Sodium Chloride Flush Syringe 10 Ml IV 10 ml PRN PRN Administration LINE FLUSH
--- NOTE | 2019-11-09 15:55 | Consultation ---
HISTORY OF PRESENT ILLNESS: This is a 74-year-old white female that presents to [facility]. She is seen by herself. There is no family history and no family members escorting her that I can obtain a more reliable history from. I cannot be sure exactly when she began to get sick. She seems to be somewhat confused as to how she ended up being at the hospital, but she did state that she went to a fire station about 48 hours ago because she was not feeling well. Her blood pressure at that point was 200/120 and she had only been taking atenolol. She realized she had a problem, began to feel dizzy, off balance, had slurred speech and from her own experience this had occurred in a previous episode of transient ischemic attack. She presented to the Emergency Room from what she tells me a rn rehab from _[facility] who she is familiar with stayed with her for a prolonged period of time, but she does not have a very good recollection for what happened. At this point, her mental state is somewhat cleared. She feels better. She is less dizzy, less weak, does not feel confused and has series of disoriented thoughts that at this point seems to be clearing. ALLERGIES: None. PAST MEDICAL HISTORY: Stroke, TIA. MEDICATIONS: Atenolol. PHYSICAL EXAMINATION: VITAL SIGNS: Her blood pressure at the bedside with the nurse checking at with the automated machine is 180/105, pulse rate is 87. Her pO2 on room air is 98%. NEUROLOGIC: Her board of directors strength is equal. Her cranial nerves are intact. Her speech is good. Orientation is excellent. She can stand up and walk, but she is very off balance. I did observe this that she seems to be extremely poorly coordinated. Reflexes are intact. Sensory examination is normal. Visual basurto are full. IMPRESSION: This patient has acute encephalopathy. I suspect she is having a number of small strokes. There were very impressive abnormalities present on her CT scan, which are old with yun and white matter atrophy and evidence of previous white matter strokes. Actually from the appearance of the CT scan, her clinical condition is much more severe than her examination, which is an interesting mismatch on the imaging versus the neurological exam. MRI scan is probably indicated. I did indicate the patient her theory that the blood pressure control is an issue certainly quite relevant at this point and that even at this point, her blood pressure is quite elevated. Await echocardiogram, carotid artery ultrasound and other diagnostic workup. JOB# [id number] JOESPH/NTS
[2019-11-09] MEDS: ENOXAPARIN 40 MG/0.4 ML INJ SUB-Q SCH (22:18)
[2019-11-10] MEDS: METOPROLOL TARTRATE 25 MG TAB PO SCH (09:40)
[2019-11-10] MEDS: ASPIRIN 325 MG TAB PO SCH (09:40)
--- NOTE | 2019-11-10 10:18 | Progress Note ---
Assessment and Plan Transient Afib initiated on beta blockers for suppression Acute CVA Hypertension Nonobstructive CAD by [facility] 09/2018 Normal LVEF 65-70% by echo this admission. Bubble study is negative. Continue beta blockers for suppression of paroxysmal afib. We will increase the dosage of metoprolol to 50mg twice daily. Initiate oral anticoagulation therapy as per recommendations of neurology. Subjective Date of service: 11/10/19 Interval history: Stable sinus rhythm on telemetry. No events seen on telemetry overnight. Objective Vital Signs Temp Pulse Pulse Pulse Pulse Resp BP 11/10/19 09:40 105 H 179/78 11/10/19 08:42 98.4 F 99 H 18 154/97 11/10/19 04:03 98.0 F 89 18 151/71 11/10/19 01:49 97.9 F 11/10/19 01:48 102 H 18 152/90 11/09/19 22:20 87 87 87 87 18 190/77 11/09/19 21:30 90 11/09/19 20:04 97.7 F 87 18 190/72 11/09/19 18:12 97.7 F 84 18 162/73 11/09/19 17:00 90 11/09/19 13:43 98.3 F 78 18 150/78 11/09/19 12:00 95 H 11/09/19 11:12 94 H 150/75 Pulse Ox 11/10/19 09:40 11/10/19 08:42 96 11/10/19 04:03 99 11/10/19 01:49 11/10/19 01:48 93 11/09/19 22:20 96 11/09/19 21:30 11/09/19 20:04 96 11/09/19 18:12 97 11/09/19 17:00 11/09/19 13:43 97 11/09/19 12:00 11/09/19 11:12 98 - Physical Examination General: No Apparent Distress HEENT: Positive: PERRL Neck: Positive: trachea midline Cardiac: Positive: Reg Rate and Rhythm Lungs: Positive: Decreased Breath Sounds Neuro: Positive: Grossly Intact
[2019-11-10] MEDS: ACETAMINOPHEN 325 MG TAB PO PRN ×2 (11:36→22:45)
--- NOTE | 2019-11-10 14:37 | Progress Note ---
Subjective Date of service: 11/10/19 Interval history: went over the MRI and the majort problem is severe chronic atrophy there is mild suggestion of small subacute infarct the important issue is there is no large acute infarct this could certainly be related to HTN agree with medical management Objective - Vital Sign Vital Signs - 12hr 11/10/19 11/10/19 11/10/19 04:03 08:42 09:40 Temperature 98.0 F 98.4 F Pulse Rate 89 99 H 105 H Pulse Rate [ Apical] Pulse Rate [ Left Radial] Pulse Rate [ Right Radial] Respiratory 18 18 Rate Blood Pressure 151/71 154/97 179/78 Blood Pressure [Left] O2 Sat by Pulse 99 96 Oximetry 11/10/19 11/10/19 10:00 11:30 Temperature 98.0 F Pulse Rate 76 82 Pulse Rate [ 87 Apical] Pulse Rate [ 87 Left Radial] Pulse Rate [ 87 Right Radial] Respiratory 19 19 Rate Blood Pressure Blood Pressure 149/64 [Left] O2 Sat by Pulse 100 Oximetry - Laboratory Findings CBC and BMP: 11/07/19 19:59 11/07/19 19:59 Abnormal Lab Findings: Abnormal Labs 11/07/19 11/07/19 11/08/19 19:59 19:59 08:52 RBC 5.25 H Hgb 15.6 H Hct 47.2 H Lymph % (Auto) 37.6 H Glucose 124 H CK-MB (CK-2) CK-MB (CK-2) Rel Index HDL Cholesterol 70 H 11/09/19 11/09/19 03:01 06:43 RBC Hgb Hct Lymph % (Auto) Glucose CK-MB (CK-2) 7.0 H 6.9 H CK-MB (CK-2) Rel Index 9.0 H 10.6 H HDL Cholesterol
[2019-11-10] MEDS: hydrALAZINE 20 MG/1 ML INJ IV PRN (19:36)
--- NOTE | 2019-11-10 19:49 | Progress Note ---
Assessment and Plan Assessment and plan: Patient is a 74-year-old female with past medical history of hypertension and TIAs in the past who is complaining of some left arm weakness and slurred speech earlier today. Patient states when she woke this morning approximately 8 AM she has some left arm weakness and heaviness. Patient states within the hour after waking the symptoms resolved. Around 2 PM patient was on the phone with a friend telling her about the weakness she had that morning and her friend noticed that she has slurred speech. Patient states this also resolved spontaneously as well. Was admitted to the [facility] for stroke protocol, not a candidate for TPA Neuro workup so far; MRI small foci of surgical increased diffusion signal along the right maxilla and frontal subcortical lesions may reflect small subacute infarct Persistent advanced cerebral atrophy involving the frontal and temporal MRA:: Mild to moderate focal stenosis involving the left MCA. Trifurcation CT head without contrast; no hemorrhoidsstroke Echo; LDH ,EF 65-70%, --Acute CVA[small subacute infarct right frontal area] Not a candidate for TPA Aspirin and statin Allergy following PT OT rehabilitation Lipid panel, permissive hypertension --New Onset atrial fibrillation; Rate controlled, cardiology following Continue beta blockers Anticoagulation per neurology recommendations --Hypertension; controlled Continue current antihypertensives and when necessary medications --Obesity; BMI 34.6 Advised weight reduction and medically stable --DVT prophylaxis; Lovenox Monitor clinically and adjust management as needed Plan of care is reviewed with the patient and her nurse Disposition; follow neurology recommendations for anticoagulation Discharge when medically stable History Interval history: Patient seen and examined medical records reviewed Patient feels better no neurologic deficit Ambulatory, speech clear Vital signs reviewed Hospitalist Physical - Constitutional Vitals: Temp Pulse Resp BP Pulse Ox 98.0 F 86 19 183/78 83 L 11/10/19 11:30 11/10/19 19:36 11/10/19 11:30 11/10/19 19:36 11/10/19 18:39 General appearance: Present: no acute distress, well-nourished - EENT Eyes: Present: PERRL, EOM intact - Neck Neck: Present: supple, normal ROM - Respiratory Respiratory effort: normal Respiratory: negative: rales, rhonchi, wheezing - Cardiovascular Rhythm: regular Heart Sounds: Present: S1 & S2 - Extremities Extremities: no ischemia, No edema - Abdominal General gastrointestinal: soft, non-tender, non-distended, normal bowel sounds - Integumentary Integumentary: Present: clear, warm - Psychiatric Psychiatric: appropriate mood/affect, cooperative - Neurologic Neurologic: CNII-XII intact, moves all extremities Results - Labs CBC & Chem 7: 11/07/19 19:59 11/07/19 19:59 Labs: Laboratory Last Values WBC 10.2 K/mm3 (4.5-11.0) 11/07/19 19:59 RBC 5.25 M/mm3 (3.65-5.03) H 11/07/19 19:59 Hgb 15.6 gm/dl (10.1-14.3) H 11/07/19 19:59 Hct 47.2 % (30.3-42.9) H 11/07/19 19:59 MCV 90 fl (79-97) 11/07/19 19:59 MCH 30 pg (28-32) 11/07/19 19:59 MCHC 33 % (30-34) 11/07/19 19:59 RDW 14.2 % (13.2-15.2) 11/07/19 19:59 Plt Count 225 K/mm3 (140-440) 11/07/19 19:59 Lymph % (Auto) 37.6 % (13.4-35.0) H 11/07/19 19:59 [place] % (Auto) 7.2 % (0.0-7.3) 11/07/19 19:59 Eos % (Auto) 2.5 % (0.0-4.3) 11/07/19 19:59 Baso % (Auto) 0.5 % (0.0-1.8) 11/07/19 19:59 Lymph # 3.8 K/mm3 (1.2-5.4) 11/07/19 19:59 [place] # 0.7 K/mm3 (0.0-0.8) 11/07/19 19:59 Eos # 0.3 K/mm3 (0.0-0.4) 11/07/19 19:59 Baso # 0.1 K/mm3 (0.0-0.1) 11/07/19 19:59 Seg Neutrophils % 52.2 % (40.0-70.0) 11/07/19 19:59 Seg Neutrophils # 5.3 K/mm3 (1.8-7.7) 11/07/19 19:59 Sodium 143 mmol/L (137-145) 11/07/19 19:59 Potassium 4.1 mmol/L (3.6-5.0) 11/07/19 19:59 Chloride 102.1 mmol/L (98-107) 11/07/19 19:59 Carbon Dioxide 26 mmol/L (22-30) 11/07/19 19:59 Anion Gap 19 mmol/L 11/07/19 19:59 BUN 11 mg/dL (7-17) 11/07/19 19:59 Creatinine 0.7 mg/dL (0.7-1.2) 11/07/19 19:59 Estimated GFR > 60 ml/min 11/07/19 19:59 BUN/Creatinine Ratio 16 % 11/07/19 19:59 Glucose 124 mg/dL (65-100) H 11/07/19 19:59 Calcium 9.9 mg/dL (8.4-10.2) 11/07/19 19:59 Total Bilirubin 0.30 mg/dL (0.1-1.2) 11/07/19 19:59 AST 20 units/L (5-40) 11/07/19 19:59 ALT 13 units/L (7-56) 11/07/19 19:59 Alkaline Phosphatase 89 units/L (35-129) 11/07/19 19:59 Total Creatine Kinase 65 units/L (30-135) 11/09/19 06:43 CK-MB (CK-2) 6.9 ng/mL (0.0-4.0) H 11/09/19 06:43 CK-MB (CK-2) Rel Index 10.6 (0-4) H 11/09/19 06:43 Troponin T < 0.010 ng/mL (0.00-0.029) 11/09/19 06:43 Total Protein 7.5 g/dL (6.3-8.2) 11/07/19 19:59 Albumin 4.0 g/dL (3.9-5) 11/07/19 19:59 Albumin/Globulin Ratio 1.1 % 11/07/19 19:59 Triglycerides 117 mg/dL (2-149) 11/08/19 08:52 Cholesterol 146 mg/dL (50-199) 11/08/19 08:52 LDL Cholesterol Direct 66 mg/dL (50-130) 11/08/19 08:52 HDL Cholesterol 70 mg/dL (40-59) H 11/08/19 08:52 Cholesterol/HDL Ratio 2.08 % 11/08/19 08:52 Active Medications - Current Medications Current Medications: Generic Name Dose Route Start Last Admin Trade Name Freq PRN Reason Stop Dose Admin Acetaminophen 650 mg 11/07/19 23:41 11/10/19 11:36 Tylenol PO 650 mg Q4H PRN Administration Pain, Mild (1-3) Aspirin 325 mg 11/08/19 10:00 11/10/19 09:40 Aspirin PO 325 mg QDAY [facility] Administration Atorvastatin Calcium 40 mg 11/08/19 22:00 11/09/19 22:19 Lipitor PO 40 mg QHS [facility] Administration Bisacodyl 10 mg 11/07/19 23:41 Dulcolax [place] QDAY PRN Constipation Enoxaparin Sodium 40 mg 11/08/19 22:00 11/09/19 22:18 Enoxaparin SUB-Q Not Given QDAY@2200 [facility] Hydralazine HCl 5 mg 11/07/19 23:43 11/10/19 19:36 Apresoline IV 5 mg Q6H PRN Administration Hypertension Magnesium Hydroxide 30 ml 11/07/19 23:41 Milk Of Magnesia PO Q4H PRN Constipation Metoprolol Tartrate 50 mg 11/10/19 22:00 Metoprolol PO BID [facility] Morphine Sulfate 2 mg 11/09/19 02:01 Morphine IV Q4H PRN Pain, Moderate (4-6) Nitroglycerin 0.4 mg 11/09/19 02:01 Nitrostat SL .Q5MIN PRN Chest Pain Ondansetron HCl 4 mg 11/07/19 23:41 11/08/19 02:28 Zofran IV 4 mg Q8H PRN Administration Nausea And Vomiting Sodium Chloride 10 ml 11/07/19 23:41 11/08/19 21:28 Sodium Chloride Flush Syringe 10 Ml IV 10 ml PRN PRN Administration LINE FLUSH
[2019-11-10] MEDS: ENOXAPARIN 40 MG/0.4 ML INJ SUB-Q SCH (22:00)
[2019-11-10] MEDS: METOPROLOL TARTRATE 50 MG TAB PO SCH (22:44)
[2019-11-10] MEDS ORDERED: diphenhydrAMINE 50 MG/ML VIAL IV PRN (22:48)
[2019-11-11] MEDS: hydrALAZINE 20 MG/1 ML INJ IV PRN (07:48)
--- NOTE | 2019-11-11 08:47 | Progress Note ---
Assessment and Plan Paroxysmal Afib, spontaneously reverted to sinus rhythm on beta blockers for suppression Acute CVA Hypertension Nonobstructive CAD by [facility] 09/2018 Normal LVEF 65-70% by echo this admission. Bubble study is negative. Recommendations: Continue metoprolol for suppression of paroxysmal afib. In addition, she needs long-term oral anticoagulation for paroxysmal atrial fibrillation and history of CVA. The timing of initiation of oral anticoagulation will depend on recommendations from neurology. Subjective Date of service: 11/11/19 Interval history: Stable sinus rhythm on telemetry. No events seen on telemetry overnight. Objective Vital Signs Temp Pulse Pulse Pulse Pulse Resp BP 11/11/19 07:48 87 192/122 11/11/19 07:27 97.7 F 87 18 192/122 11/11/19 04:08 98.1 F 68 18 181/85 11/11/19 00:26 98.3 F 89 18 172/84 11/10/19 23:45 20 11/10/19 22:45 20 11/10/19 22:00 128 H 11/10/19 21:43 107 H 22 192/69 11/10/19 19:36 86 183/78 11/10/19 19:25 98.1 F 87 18 173/74 11/10/19 18:39 42 L 183/78 11/10/19 17:00 85 11/10/19 11:34 82 149/64 11/10/19 11:30 98.0 F 82 19 11/10/19 10:37 87 179/78 11/10/19 10:00 76 87 87 87 19 11/10/19 09:40 105 H 179/78 BP Pulse Ox 11/11/19 07:48 11/11/19 07:27 98 11/11/19 04:08 99 11/11/19 00:26 99 11/10/19 23:45 11/10/19 22:45 11/10/19 22:00 11/10/19 21:43 100 11/10/19 19:36 11/10/19 19:25 95 11/10/19 18:39 83 L 11/10/19 17:00 11/10/19 11:34 96 11/10/19 11:30 149/64 11/10/19 10:37 71 L 11/10/19 10:00 100 11/10/19 09:40 - Physical Examination General: No Apparent Distress HEENT: Positive: PERRL Neck: Positive: trachea midline Cardiac: Positive: Reg Rate and Rhythm Lungs: Positive: Decreased Breath Sounds Neuro: Positive: Grossly Intact Extremities: Absent: edema
[2019-11-11] MEDS ORDERED: hydrALAZINE 20 MG/1 ML INJ IV PRN (10:30)
[2019-11-11] MEDS: LISINOPRIL 20 MG TAB PO SCH (10:37)
[2019-11-11] MEDS: METOPROLOL TARTRATE 50 MG TAB PO SCH ×2 (10:37→22:22)
[2019-11-11] MEDS: ASPIRIN 325 MG TAB PO SCH (10:37)
[2019-11-11] MEDS ORDERED: hydrALAZINE 25 MG TAB PO SCH (14:00)
--- NOTE | 2019-11-11 16:29 | Progress Note ---
Subjective Date of service: 11/11/19 Interval history: spoke to Dr. Santiago I would start loww dose eliquis po tomorrow day for embolic stroke atrial fibrillation did review Cardiology note Thanks Objective - Vital Sign Vital Signs - 12hr 11/11/19 11/11/19 11/11/19 07:27 07:48 09:35 Temperature 97.7 F Pulse Rate 87 87 87 Respiratory 18 Rate Blood Pressure 192/122 192/122 O2 Sat by Pulse 98 Oximetry 11/11/19 11/11/19 09:36 10:37 Temperature Pulse Rate 96 H Respiratory Rate Blood Pressure 166/74 O2 Sat by Pulse 98 Oximetry - Laboratory Findings CBC and BMP: 11/07/19 19:59 11/07/19 19:59 Abnormal Lab Findings: Abnormal Labs 11/07/19 11/07/19 11/08/19 19:59 19:59 08:52 RBC 5.25 H Hgb 15.6 H Hct 47.2 H Lymph % (Auto) 37.6 H Glucose 124 H CK-MB (CK-2) CK-MB (CK-2) Rel Index HDL Cholesterol 70 H 11/09/19 11/09/19 03:01 06:43 RBC Hgb Hct Lymph % (Auto) Glucose CK-MB (CK-2) 7.0 H 6.9 H CK-MB (CK-2) Rel Index 9.0 H 10.6 H HDL Cholesterol
--- NOTE | 2019-11-11 21:43 | Progress Note ---
Assessment and Plan Assessment and plan: --Acute CVA[small subacute infarct right frontal area] Not a candidate for TPA, Aspirin and statin Neurology following, PT OT rehabilitation Lipid panel, permissive hypertension Neuro workup so far; MRI small foci of surgical increased diffusion signal along the right maxilla and frontal subcortical lesions may reflect small subacute infarct Persistent advanced cerebral atrophy involving the frontal and temporal MRA:: Mild to moderate focal stenosis involving the left MCA. Trifurcation CT head without contrast; no hemorrhoidsstroke Echo; LDH ,EF 65-70%, --New Onset atrial fibrillation; Rate controlled, cardiology following Continue beta blockers Anticoagulation per neurology recommendations --Hypertension; controlled Continue current antihypertensives and when necessary medications --Dyslipidemia; statin --Obesity; BMI 34.6 Advised weight reduction and medically stable --DVT prophylaxis; Lovenox Monitor clinically and adjust management as needed Plan of care is reviewed with the patient and her nurse Disposition; follow neurology recommendations for anticoagulation Discharge when medically stable History: Patient is a 74-year-old female with past medical history of hypertension and TIAs in the past who is complaining of some left arm weakness and slurred speech earlier today. Patient states when she woke this morning approximately 8 AM she has some left arm weakness and heaviness. Patient states within the hour after waking the symptoms resolved. Around 2 PM patient was on the phone with a friend telling her about the weakness she had that morning and her friend noticed that she has slurred speech. Patient states this also resolved spontaneously as well. Was admitted to the hospital for stroke protocol, not a candidate for TPA History Interval history: Patient feels better and no neurologic deficits Denies any headache or dizziness Denies chest pain or shortness of breath Vital signs reviewed Hospitalist Physical - Constitutional Vitals: Temp Pulse Resp BP Pulse Ox 98.3 F 81 18 140/63 98 11/11/19 19:23 11/11/19 19:23 11/11/19 19:23 11/11/19 19:23 11/11/19 19:23 General appearance: Present: no acute distress, well-nourished - EENT Eyes: Present: PERRL, EOM intact - Neck Neck: Present: supple, normal ROM - Respiratory Respiratory effort: normal Respiratory: bilateral: diminished, negative: rales, rhonchi, wheezing - Cardiovascular Rhythm: regular Heart Sounds: Present: S1 & S2 - Extremities Extremities: no ischemia, No edema - Abdominal General gastrointestinal: soft, non-tender, non-distended, normal bowel sounds - Integumentary Integumentary: Present: clear, warm - Psychiatric Psychiatric: appropriate mood/affect, cooperative - Neurologic Neurologic: CNII-XII intact, moves all extremities Results - Labs CBC & Chem 7: 11/07/19 19:59 11/07/19 19:59 Labs: Laboratory Last Values WBC 10.2 K/mm3 (4.5-11.0) 11/07/19 19:59 RBC 5.25 M/mm3 (3.65-5.03) H 11/07/19 19:59 Hgb 15.6 gm/dl (10.1-14.3) H 11/07/19 19:59 Hct 47.2 % (30.3-42.9) H 11/07/19 19:59 MCV 90 fl (79-97) 11/07/19 19:59 MCH 30 pg (28-32) 11/07/19 19:59 MCHC 33 % (30-34) 11/07/19 19:59 RDW 14.2 % (13.2-15.2) 11/07/19 19:59 Plt Count 225 K/mm3 (140-440) 11/07/19 19:59 Lymph % (Auto) 37.6 % (13.4-35.0) H 11/07/19 19:59 [place] % (Auto) 7.2 % (0.0-7.3) 11/07/19 19:59 Eos % (Auto) 2.5 % (0.0-4.3) 11/07/19 19:59 Baso % (Auto) 0.5 % (0.0-1.8) 11/07/19 19:59 Lymph # 3.8 K/mm3 (1.2-5.4) 11/07/19 19:59 [place] # 0.7 K/mm3 (0.0-0.8) 11/07/19 19:59 Eos # 0.3 K/mm3 (0.0-0.4) 11/07/19 19:59 Baso # 0.1 K/mm3 (0.0-0.1) 11/07/19 19:59 Seg Neutrophils % 52.2 % (40.0-70.0) 11/07/19 19:59 Seg Neutrophils # 5.3 K/mm3 (1.8-7.7) 11/07/19 19:59 Sodium 143 mmol/L (137-145) 11/07/19 19:59 Potassium 4.1 mmol/L (3.6-5.0) 11/07/19 19:59 Chloride 102.1 mmol/L (98-107) 11/07/19 19:59 Carbon Dioxide 26 mmol/L (22-30) 11/07/19 19:59 Anion Gap 19 mmol/L 11/07/19 19:59 BUN 11 mg/dL (7-17) 11/07/19 19:59 Creatinine 0.7 mg/dL (0.7-1.2) 11/07/19 19:59 Estimated GFR > 60 ml/min 11/07/19 19:59 BUN/Creatinine Ratio 16 % 11/07/19 19:59 Glucose 124 mg/dL (65-100) H 11/07/19 19:59 Calcium 9.9 mg/dL (8.4-10.2) 11/07/19 19:59 Total Bilirubin 0.30 mg/dL (0.1-1.2) 11/07/19 19:59 AST 20 units/L (5-40) 11/07/19 19:59 ALT 13 units/L (7-56) 11/07/19 19:59 Alkaline Phosphatase 89 units/L (35-129) 11/07/19 19:59 Total Creatine Kinase 65 units/L (30-135) 11/09/19 06:43 CK-MB (CK-2) 6.9 ng/mL (0.0-4.0) H 11/09/19 06:43 CK-MB (CK-2) Rel Index 10.6 (0-4) H 11/09/19 06:43 Troponin T < 0.010 ng/mL (0.00-0.029) 11/09/19 06:43 Total Protein 7.5 g/dL (6.3-8.2) 11/07/19 19:59 Albumin 4.0 g/dL (3.9-5) 11/07/19 19:59 Albumin/Globulin Ratio 1.1 % 11/07/19 19:59 Triglycerides 117 mg/dL (2-149) 11/08/19 08:52 Cholesterol 146 mg/dL (50-199) 11/08/19 08:52 LDL Cholesterol Direct 66 mg/dL (50-130) 11/08/19 08:52 HDL Cholesterol 70 mg/dL (40-59) H 11/08/19 08:52 Cholesterol/HDL Ratio 2.08 % 11/08/19 08:52 Active Medications - Current Medications Current Medications: Generic Name Dose Route Start Last Admin Trade Name Freq PRN Reason Stop Dose Admin Acetaminophen 650 mg 11/07/19 23:41 11/10/19 22:45 Tylenol PO 650 mg Q4H PRN Administration Pain, Mild (1-3) Aspirin 325 mg 11/08/19 10:00 11/11/19 10:37 Aspirin PO 325 mg QDAY [facility] Administration Atorvastatin Calcium 40 mg 11/08/19 22:00 11/10/19 22:45 Lipitor PO 40 mg QHS [facility] Administration Bisacodyl 10 mg 11/07/19 23:41 Dulcolax [place] QDAY PRN Constipation Diphenhydramine HCl 25 mg 11/10/19 22:48 11/11/19 07:48 Benadryl IV 25 mg Q6H PRN Administration Itching Enoxaparin Sodium 40 mg 11/08/19 22:00 11/10/19 22:00 Enoxaparin SUB-Q Not Given QDAY@2200 [facility] Lisinopril 20 mg 11/11/19 11:00 11/11/19 10:37 Zestril PO 20 mg QDAY [facility] Administration Magnesium Hydroxide 30 ml 11/07/19 23:41 Milk Of Magnesia PO Q4H PRN Constipation Metoprolol Tartrate 50 mg 11/10/19 22:00 11/11/19 10:37 Metoprolol PO 50 mg BID [facility] Administration Morphine Sulfate 2 mg 11/09/19 02:01 Morphine IV Q4H PRN Pain, Moderate (4-6) Nitroglycerin 0.4 mg 11/09/19 02:01 Nitrostat SL .Q5MIN PRN Chest Pain Ondansetron HCl 4 mg 11/07/19 23:41 11/08/19 02:28 Zofran IV 4 mg Q8H PRN Administration Nausea And Vomiting Sodium Chloride 10 ml 11/07/19 23:41 11/08/19 21:28 Sodium Chloride Flush Syringe 10 Ml IV 10 ml PRN PRN Administration LINE FLUSH
[2019-11-11] MEDS: ENOXAPARIN 40 MG/0.4 ML INJ SUB-Q SCH (22:22)
--- NOTE | 2019-11-12 09:44 | Progress Note ---
Assessment and Plan Paroxysmal Afib, spontaneously reverted to sinus rhythm on beta blockers for suppression Acute CVA Hypertension Nonobstructive CAD by [facility] 09/2018 Normal LVEF 65-70% by echo this admission. Bubble study is negative. Recommendations: Continue metoprolol for suppression of paroxysmal afib. Patient needs long-term oral anticoagulation for paroxysmal atrial fibrillation and history of CVA. Neurology recommends low dose Eliquis, to initiate today. Stable cardiac zuniga for discharge. Patient advised to follow up with Dr Au, her primary court of appeals judge in 3-5 days. Subjective Date of service: 11/12/19 Interval history: Neurology recommends starting low dose Eliquis today. Stable sinus rhythm on telemetry. No events seen on telemetry overnight. Objective Vital Signs Temp Pulse Resp BP BP Pulse Ox 11/12/19 08:08 97.3 F L 82 20 99 11/12/19 08:00 97.3 F L 82 18 139/77 98 11/12/19 04:06 98.1 F 72 18 152/67 98 11/11/19 23:12 98.8 F 78 18 164/72 96 11/11/19 22:00 64 11/11/19 19:23 98.3 F 81 18 140/63 98 11/11/19 17:48 84 169/75 98 11/11/19 13:21 97.1 F L 72 18 143/73 97 11/11/19 10:39 20 166/74 11/11/19 10:37 96 H 166/74 - Physical Examination General: No Apparent Distress HEENT: Positive: PERRL Neck: Positive: trachea midline Cardiac: Positive: Reg Rate and Rhythm Lungs: Positive: Decreased Breath Sounds Neuro: Positive: Grossly Intact Extremities: Absent: edema
[2019-11-12] MEDS: LISINOPRIL 20 MG TAB PO SCH (10:35)
[2019-11-12] MEDS: METOPROLOL TARTRATE 50 MG TAB PO SCH (10:35)
[2019-11-12] MEDS: ASPIRIN 325 MG TAB PO SCH (10:35)
--- NOTE | 2019-11-12 15:36 | Discharge Summary ---
Providers - Providers Date of Admission: 11/09/19 09:18 Attending physician: VERONICA CAMPBELL 11/07/19 Consult to Physician [CONS] Routine Comment: Consulting Provider: DEREK OCHOA Physician Instructions: Reason For Exam: tia 11/07/19 23:41 Occupational Therapy Evaluate and Treat [CONS] Routine Comment: Reason For Exam: Neuro deficits Physical Therapy Evaluation and Treat [CONS] Routine Comment: Reason For Exam: Neuro deficits 11/09/19 02:00 Consult to Physician [CONS] Routine Comment: Consulting Provider: CARLOS ARGUETA Physician Instructions: Reason For Exam: ST with irregular rate, c/o chest pressure Primary care physician: CORPORATE DIRECTOR OF PHARMACY Hospitalization Condition: Stable Hospital course: Discontinue Plavix. Disposition: DC-30 STILL A PATIENT Exam - Constitutional Vitals: Temp Pulse Resp BP Pulse Ox 97.0 F L 67 18 121/58 98 11/12/19 11:50 11/12/19 11:50 11/12/19 11:50 11/12/19 11:50 11/12/19 11:50 Plan Follow up with: PRIMARY CARE, [Primary Care Provider] - 7 Days Prescriptions: Aspirin [Aspirin BABY CHEW TAB] 81 mg PO QDAY #30 tab.chew Apixaban [Eliquis] 2.5 mg PO BID #60 tablet
[2019-11-12 15:59] VITALS: BP 173/80
[2019-11-12] MEDS ORDERED: APIXABAN 2.5 MG TAB PO SCH (22:00)
[2019-11-13] MEDS ORDERED: ASPIRIN 81 MG TAB CHEW PO SCH (10:00)
== END 2019-11-12 18:22 | disposition home or self-care (01) | DRG 65 ==
LOC: ED 18:39 → 4A 21:44 → OBSVTOIN 11-09 09:18
PROVIDERS: ADMIT Internal Medicine; ATTEND Internal Medicine
DX: I63.9 Cerebral infarction, unspecified (principal); G93.40 Encephalopathy, unspecified; E66.9 Obesity, unspecified; Z68.34 Body mass index [BMI] 34.0-34.9, adult; I10 Essential (primary) hypertension; I48.91 Unspecified atrial fibrillation; I25.10 Atherosclerotic heart disease of native coronary artery without angina pectoris; I48.0 Paroxysmal atrial fibrillation; E78.5 Hyperlipidemia, unspecified; I16.0 Hypertensive urgency; Z90.710 Acquired absence of both cervix and uterus; Z90.49 Acquired absence of other specified parts of digestive tract; Z86.73 Personal history of transient ischemic attack (TIA), and cerebral infarction without residual deficits; Z82.49 Family history of ischemic heart disease and other diseases of the circulatory system; Z83.3 Family history of diabetes mellitus; Z88.8 Allergy status to other drugs, medicaments and biological substances; Z79.01 Long term (current) use of anticoagulants
CPT/HCPCS: 36415; 70450; 70544; 70551; 71046; 80053; 80061; 82550; 82553; 84484; 85025; 93005; 93010; 93306; G0378; A9270-GY; J0360; J1200; J1650; J2405

== ENCOUNTER 2021-03-03 04:44 | Emergency (ER) | payer MEDICARE ==
[2021-03-03] MEDS ORDERED: MINERAL OIL/PETROLATUM, WHITE OPHTH OINT 3.5 GM OU PRN (04:54)
[2021-03-03] MEDS ORDERED: LIP THERAPY VASELINE TP PRN (04:54)
--- NOTE | 2021-03-03 04:56 | Emergency Department Report ---
ED Altered Mental Status HPI - General Chief Complaint: Altered Mental Status Stated Complaint: RESPIRATORY DISTRESS PUI?: No Time Seen by Provider: 03/03/21 04:44 Source: EMS - History of Present Illness Initial Comments: Patient is a 75-year-old female that presents emergency room with altered mental status and unresponsiveness. Patient's last known well time was 20 minutes prior to arrival. Patient brought in by EMS. Patient's family called EMS. Patient had a stroke approximately 4 weeks ago with right-sided weakness. MD Complaint: altered mental status, decreased responsiveness -: Sudden Severity: severe Consistency of Symptoms: constant - Related Data Home Medications Medication Instructions Recorded Confirmed Last Taken Amitriptyline [Elavil] 75 mg PO QHS 11/09/19 11/09/19 Unknown Atenolol [Tenormin] 100 mg PO BID 11/09/19 11/09/19 Unknown DULoxetine 30 mg PO ONCE 11/09/19 11/09/19 Unknown Isosorbide Mononitrate 10 mg PO ONCE 11/09/19 11/09/19 Unknown Previous Rx's Medication Instructions Recorded Last Taken Type Apixaban [Eliquis] 2.5 mg PO BID #60 tablet 11/12/19 Unknown Rx Aspirin [Aspirin BABY CHEW TAB] 81 mg PO QDAY #30 tab.chew 11/12/19 Unknown Rx Allergies Allergy/AdvReac Type Severity Reaction Status Date / Time meperidine HCl [From Demerol] Allergy Vomiting Verified 11/07/19 23:56 ED Review of Systems ROS: Stated complaint: RESPIRATORY DISTRESS Other details as noted in HPI Comment: Unobtainable due to pts medical conditions ED Past Medical Hx - Past Medical History Previous Medical History?: Yes Hx Hypertension: Yes Hx CVA: Yes Additional medical history: TIA, Glycoma, - Surgical History Past Surgical History?: No - Family History Family history: no significant - Social History Smoking Status: Never Smoker Substance Use Type: None - Medications Home Medications: Home Medications Medication Instructions Recorded Confirmed Last Taken Type Amitriptyline [Elavil] 75 mg PO QHS 11/09/19 11/09/19 Unknown History Atenolol [Tenormin] 100 mg PO BID 11/09/19 11/09/19 Unknown History DULoxetine 30 mg PO ONCE 11/09/19 11/09/19 Unknown History Isosorbide Mononitrate 10 mg PO ONCE 11/09/19 11/09/19 Unknown History Apixaban [Eliquis] 2.5 mg PO BID #60 tablet 11/12/19 Unknown Rx Aspirin [Aspirin BABY CHEW TAB] 81 mg PO QDAY #30 tab.chew 11/12/19 Unknown Rx ED Physical Exam - General Limitations: Altered Mental Status, Physical Limitation General appearance: obtunded - Head Head exam: Present: atraumatic, normocephalic - Eye Eye exam: Present: normal appearance, PERRL Pupils: Present: normal accommodation - ENT ENT exam: Present: mucous membranes dry - Neck Neck exam: Present: normal inspection - Respiratory Respiratory exam: Present: normal lung sounds bilaterally. Absent: respiratory distress, wheezes, rales - Cardiovascular Cardiovascular Exam: Present: regular rate, normal rhythm. Absent: systolic murmur, diastolic murmur, rubs, gallop - GI/Abdominal GI/Abdominal exam: Present: soft, normal bowel sounds. Absent: distended, tenderness, guarding - Extremities Exam Extremities exam: Present: normal inspection - Back Exam Back exam: Present: normal inspection - Neurological Exam Neurological exam: Present: altered - Skin Skin exam: Present: warm, dry, intact, normal color. Absent: rash - Assessment Assessment Interval: Baseline - Level of Consciousness 1a. Level of Consciousness: coma/unresponsive - LOC Questions 1b. LOC Questions: aphasic - LOC Command 1c. LOC Commands: performs no tasks correctly - Best Gaze 2. Best Gaze: normal - Visual 3. Visual: no visual loss - Facial Palsy 4. Facial Palsy: normal symmetrical movement - Motor Arm 5a. Motor Arm Left: no movement 5b. Motor Arm Right: no movement - Motor Leg 6a. Motor Leg Left: no movement 6b. Motor Leg Right: no movement - Limb Ataxia 7. Limb Ataxia: absent - Sensory 8. Sensory: normal - Best Language 9. Best Language: coma/unresponsive - Dysarthria 10. Dysarthria: intubated or other barrier - Extinction and Inattention 11. Extinction/Inattention: no abnormality - Scoring Total Score: 26 Stroke Severity: Severe Stroke ED Course Vital Signs 03/03/21 03/03/21 03/03/21 04:42 04:45 04:50 Pulse Rate 76 107 H 112 H Respiratory 12 12 12 Rate Blood Pressure 259/140 259/140 O2 Sat by Pulse 100 100 Oximetry 03/03/21 03/03/2103/03/21 04:56 04:58 05:00 Pulse Rate 80 92 H Respiratory 11 L 22 20 Rate Blood Pressure 259/140 259/140 O2 Sat by Pulse 100 100 Oximetry 03/03/21 03/03/21 03/03/21 05:33 05:35 05:41 Pulse Rate 71 72 69 Respiratory 16 20 20 Rate Blood Pressure 259/140 259/140 259/140 O2 Sat by Pulse 99 100 100 Oximetry 03/03/21 03/03/21 03/03/21 05:45 05:50 05:55 Pulse Rate 69 67 67 Respiratory 20 20 19 Rate Blood Pressure 146/87 161/85 158/84 O2 Sat by Pulse 100 100 100 Oximetry 03/03/21 03/03/21 03/03/21 06:00 06:05 06:10 Pulse Rate 66 59 L 63 Respiratory 20 20 20 Rate Blood Pressure 173/91 173/91 169/79 O2 Sat by Pulse 100 100 100 Oximetry 03/03/21 03/03/21 03/03/21 06:15 06:21 06:25 Pulse Rate 63 65 65 Respiratory 20 20 20 Rate Blood Pressure 167/80 208/79 235/105 O2 Sat by Pulse 100 100 100 Oximetry 03/03/21 03/03/21 03/03/21 06:30 06:35 06:41 Pulse Rate 66 62 64 Respiratory 20 20 20 Rate Blood Pressure 209/86 179/71 153/65 O2 Sat by Pulse 100 100 100 Oximetry 03/03/21 03/03/21 03/03/21 06:45 06:50 06:55 Pulse Rate 63 59 L 60 Respiratory 20 20 20 Rate Blood Pressure 126/55 121/52 111/51 O2 Sat by Pulse 100 100 100 Oximetry 03/03/21 07:00 Pulse Rate 61 Respiratory 20 Rate Blood Pressure 111/43 O2 Sat by Pulse 100 Oximetry - Reevaluation(s) Reevaluation #1: Initial valuation done. Patient found to have agonal breathing and being bagged by EMS. Patient immediately intubated however the patient did not have IV access and an IO was placed. Patient tolerated procedure well. RSI used. See procedure note. Code stroke initiated immediately upon arrival. 03/03/21 04:54 Reevaluation #2: Patient blood pressure improving. Patient is sedated on ventilator. 03/03/21 05:20 Reevaluation #3: Patient will be transferred to another facility with neuro ICU. 03/03/21 06:21 - Consultations Consultation #1: I discussed CT scan with neurology and it is a pontine bleed. Neurology recommends 1 g/kg of mannitol And blood pressure less than 160. 03/03/21 05:20 Consultation #2: I discussed the case with [facility] [place] and the patient has been accepted to go to [facility]. The patient has been accepted by Dr. Jerome. Dr. Jerome on recommends blood pressure below 140 systolically and Keppra 1 g. 03/03/21 05:50 Dr. Jerome recommends Kcentra to reverse the Eliquis. 03/03/21 06:30 Consultation #3: I discussed case with our neurosurgery, Dr. Kessler and they recommend transfer to a tertiary facility with neuro ICU. 03/03/21 06:05 - Intubation Time Out Performed: Yes Sedative: Etomidate Paralytic: Succinylcholine Laryngoscope: fiberoptic video scope Size: 4 Assist Device Used: fiberoptic device ET Tube Size: 7.5 Tube Secured Depth (cm): 22 Tube Secured Location: teeth Tube Placement Confirmation: visualized tube passing t, equal breath sounds bilat, no breath sounds over epi, confirmation by capnometr Patient Tolerated Procedure: well, no complications Intubation Complications: none - IO Left Tibia Consent Obtained: emergent situation Time Out Performed: Yes IO Instrument Used to Penetrate the Cortex: battery powered IO drill Patient Tolerated Procedure: well, no complications Complications: none Additional Comments: No complications. Line flushed and withdrew well. Sterile dressing applied. - Lab Data Result diagrams: 03/03/21 05:41 03/03/21 05:41 Lab Results 03/03/21 03/03/21 03/03/21 Range/Units 05:41 05:41 05:41 WBC 8.6 (4.5-11.0) K/mm3 RBC 4.65 (3.65-5.03) M/mm3 Hgb 13.6 (10.1-14.3) gm/dl Hct 41.6 (30.3-42.9) % MCV 90 (79-97) fl MCH 29 (28-32) pg MCHC 33 (30-34) % RDW 13.8 (13.2-15.2) % Plt Count 223 (140-440) K/mm3 Lymph % (Auto) 13.9 (13.4-35.0) % [place] % (Auto) 4.5 (0.0-7.3) % Eos % (Auto) 0.4 (0.0-4.3) % Baso % (Auto) 0.2 (0.0-1.8) % Lymph # (Auto) 1.2 (1.2-5.4) K/mm3 [place] # (Auto) 0.4 (0.0-0.8) K/mm3 Eos # (Auto) 0.0 (0.0-0.4) K/mm3 Baso # (Auto) 0.0 (0.0-0.1) K/mm3 Seg Neutrophils % 81.0 H (40.0-70.0) % Seg Neutrophils # 7.0 (1.8-7.7) K/mm3 PT 13.5 (12.2-14.9) Sec. INR 1.04 (0.87-1.13) APTT 25.2 (24.2-36.6) Sec. Thrombin Time 18.0 (15.1-19.6) Sec. Sodium 140 (137-145) mmol/L Potassium 3.9 (3.6-5.0) mmol/L Chloride 102.8 (98-107) mmol/L Carbon Dioxide 25 (22-30) mmol/L Anion Gap 16 mmol/L BUN 14 (7-17) mg/dL Creatinine 0.6 (0.6-1.2) mg/dL Estimated GFR > 60 ml/min BUN/Creatinine Ratio 23 % Glucose 166 H (65-100) mg/dL POC Glucose (70-105) mg/dL Calcium 8.7 (8.4-10.2) mg/dL Total Creatine Kinase (30-135) units/L CK-MB (CK-2) (0.0-4.0) ng/mL CK-MB (CK-2) Rel Index (0-4) Troponin T < 0.010 (0.00-0.029) ng/mL 03/03/21 03/03/21 Range/Units 05:41 06:14 WBC (4.5-11.0) K/mm3 RBC (3.65-5.03) M/mm3 Hgb (10.1-14.3) gm/dl Hct (30.3-42.9) % MCV (79-97) fl MCH (28-32) pg MCHC (30-34) % RDW (13.2-15.2) % Plt Count (140-440) K/mm3 Lymph % (Auto) (13.4-35.0) % [place] % (Auto) (0.0-7.3) % Eos % (Auto) (0.0-4.3) % Baso % (Auto) (0.0-1.8) % Lymph # (Auto) (1.2-5.4) K/mm3 [place] # (Auto) (0.0-0.8) K/mm3 Eos # (Auto) (0.0-0.4) K/mm3 Baso # (Auto) (0.0-0.1) K/mm3 Seg Neutrophils % (40.0-70.0) % Seg Neutrophils # (1.8-7.7) K/mm3 PT (12.2-14.9) Sec. INR (0.87-1.13) APTT (24.2-36.6) Sec. Thrombin Time (15.1-19.6) Sec. Sodium (137-145) mmol/L Potassium (3.6-5.0) mmol/L Chloride (98-107) mmol/L Carbon Dioxide (22-30) mmol/L Anion Gap mmol/L BUN (7-17) mg/dL Creatinine (0.6-1.2) mg/dL Estimated GFR ml/min BUN/Creatinine Ratio % Glucose (65-100) mg/dL POC Glucose 143 H (70-105) mg/dL Calcium (8.4-10.2) mg/dL Total Creatine Kinase 36 (30-135) units/L CK-MB (CK-2) 2.1 (0.0-4.0) ng/mL CK-MB (CK-2) Rel Index 5.8 H (0-4) Troponin T (0.00-0.029) ng/mL - Radiology Data Radiology results: report reviewed, image reviewed interpreted by me: Chest x-ray: No pneumonia, no pneumothorax, no osseous findings. ET tube and NG tube in satisfactory positions. CT HEAD WITHOUT CONTRAST INDICATION / CLINICAL INFORMATION: CODE STROKE PROTOCOL!! Stroke-Like Symptoms, Unresponsive. TECHNIQUE: All CT scans at this location are performed using CT dose reduction for ALARA by means of automated exposure control. COMPARISON: 11/07/19. FINDINGS: HEMORRHAGE: There is a large area of acute hemorrhage involving the mid to upper jose ramon and the lower midbrain. The hemorrhage measures approximately 4.4 cm in greatest dimension. The hemorrhage extends posteriorly on the left into the fourth ventricle. EXTRA-AXIAL SPACES: Moderately prominent likely related to cortical atrophy. VENTRICULAR SYSTEM: Moderately enlarged likely related to central atrophy. Mildly dilated temporal horns. CEREBRAL PARENCHYMA: Extensive small vessel ischemic changes in the periventricular white matter and gangliocapsular regions bilaterally. No acute territorial infarct. MIDLINE SHIFT / HERNIATION: None. CEREBELLUM / BRAINSTEM: No significant abnormality. ORBITS: Normal as visualized. SOFT TISSUES: No significant abnormality. SKULL: No significant abnormality. PARANASAL SINUSES / MASTOID AIR CELLS: Normal as visualized. ADDITIONAL FINDINGS: None. IMPRESSION: Large acute parenchymal hemorrhage involving the brainstem. There is intraventricular extension into the fourth ventricle with evidence of early hydrocephalus. CHEST 1 VIEW 03/03/2021 5:17 AM INDICATION / CLINICAL INFORMATION: ETT placement. COMPARISON: 11/07/19 FINDINGS: SUPPORT DEVICES: There is an endotracheal tube with the tip approximately 4 cm above the neelam. The tip of the nasogastric tube overlies the distal stomach or duodenal bulb. HEART / MEDIASTINUM: The heart size and pulmonary vasculature are normal. LUNGS / PLEURA: No significant pulmonary or pleural abnormality. No pneumothor ax. ADDITIONAL FINDINGS: No significant additional findings. IMPRESSION: 1. ET tube and NG tube in satisfactory position radiographically. 2. No acute abnormality. - Medical Decision Making Patient is a 75-year-old female who presents emergency room for unresponsiveness and agonal breathing. Patient was immediately intubated after initial evaluation patient had an IO placed because the nurses were unable to obtain a peripheral line and then the patient was intubated. See procedure notes. Patient also found to have severely elevated blood pressure above 250/130. Patient's blood pressure improved with propofol and patient was placed on a cart nicardipine drip. Patient had a code stroke initiated after initial evaluation and patient was found to have a pontine bleed. I did consult neurosurgery here and they recommended transfer. I discussed this with [facility] [place] and they accepted the patient to be transferred. The patient's blood pressure was kept below 140 with nicardipine. After the results came back from CT scan and the hydrocephalus was noted, made mannitol 100 g was ordered. Patient transferred to high-level care with the neuro ICU. Critical care time documented due to the multiple reassessments, prolonged time at the bedside, interpretation of diagnostics and labs. - Differential Diagnosis Intracranial hemorrhage, stroke, respiratory failure, altered mental status Critical Care Time: Yes Critical care time in (mins) excluding proc time.: 80 Critical care attestation.: If time is entered above; I have spent that time in minutes in the direct care of this critically ill patient, excluding procedure time. Critical Care Time: 80 minutes ED Disposition Clinical Impression: Unresponsive state, Hypertensive emergency ICH (intracerebral hemorrhage) Qualifiers: Intracerebral hemorrhage etiology: nontraumatic Cerebral hemorrhage location: unspecified cerebral location Laterality: unspecified laterality Qualified Code(s): I61.9 - Nontraumatic intracerebral hemorrhage, unspecified Altered mental state Qualifiers: Altered mental status type: unspecified Qualified Code(s): R41.82 - Altered mental status, unspecified Respiratory failure Qualifiers: Chronicity: acute Respiratory failure complication: hypoxia Qualified Code(s): J96.01 - Acute respiratory failure with hypoxia Disposition: DC/TX-70 ANOTHER TYPE HLTHCARE Is pt being admited?: No Does the pt Need Aspirin: No Condition: Critical Instructions: Hypertension (ED) Referrals: PRIMARY CARE, [Primary Care Provider] - 3-5 Days Time of Disposition: 06:14
[2021-03-03] MEDS ORDERED: MANNITOL IV ONE (05:18)
--- NOTE | 2021-03-03 05:22 | Consultation ---
History of Present Illness History of present illness: Between Teleneurology Consult Note # Demographics Consult Type: Acute Stroke Level 1 (0-4.5 hrs) Patient Location: Emergency Room First Name: Alessandra Last Name: Nicole Date of : 1945 Age: 75 Gender: Female Time of Initial Page ( Time): 03/03/2021, 04:50 Time of Return Call ( Time): 03/03/2021, 04:51 # HPI Chief Complaint: unresponsiveness History: 75F with stroke 1 month prior presents with unresponsivness and possible seizure activity. On arrival to ED, started to become slightly more responsive but not protecting airway, so intubated for airway protection. BP 220/140s prior to intubation, then down to 160s/110s. # Scores Time of exam and NIHSS (): 03/03/2021, 05:17 Level of Consciousness 1a: [3] = Responds only with reflex motor or unresponsive LOC Questions 1b: [2] = Answers neither correctly LOC Commands 1c: [2] = Performs neither correctly Best Gaze 2: [2] = Forced deviation Visual 3: [3] = Bilateral hemianopia Facial Palsy 4: [3] = Complete paralysis Motor Arm Left 5a: [3] = No effort against gravity Motor Arm Right 5b: [3] = No effort against gravity Motor Leg Left 6a: [4] = No movement Motor Leg Right 6b: [4] = No movement Limb Ataxia 7: [0] = Absent Sensory 8: [2] = Severe to total sensory loss Best Language 9: [3] = Mute Dysarthria 10: [0] UN = Intubated or other physical barrier Extinction and Inattention 11: [0] = No abnormality NIHSS Total: 34 ICH Score: [1] = GCS 5-12, [0] = age < 80, [0] = ICH vol < 30 mL, [1] = intraventricular hemorrhage, [1] = infratentorial origin of hemorrhage ICH Score total: 3 # Data Time Head CT personally read by me ( Time): 03/03/2021, 05:[address]: large pontine hemorrhage with intraventricular extension # Assessment Impression: Hemorrhagic Stroke, IVH # Plan Thrombolytic/Intervention: NOT IV Thrombolytic or IA Intervention Thrombolytic Exclusion (< 3 hour window): ICH Intraarterial Exclusion: ICH Target Blood Pressure: SBP < 160 Medication: mannitol 100g Additional Recommendations: transfer for possible neurosurgical intervention HOB > 30 degrees Disposition: transfer # Logistics Telemedicine: Interactive 2 way audio and visual telecommunication technology was utilized during this visit Electronically signed at 03/03/2021 05:20 (Eastern Time) by Amanuel Calderon MD Medications and Allergies Allergies Allergy/AdvReac Type Severity Reaction Status Date / Time meperidine HCl [From Demerol] Allergy Vomiting Verified 11/07/19 23:56 Home Medications Medication Instructions Recorded Confirmed Last Taken Type Amitriptyline [Elavil] 75 mg PO QHS 11/09/19 11/09/19 Unknown History Atenolol [Tenormin] 100 mg PO BID 11/09/19 11/09/19 Unknown History DULoxetine 30 mg PO ONCE 11/09/19 11/09/19 Unknown History Isosorbide Mononitrate 10 mg PO ONCE 11/09/19 11/09/19 Unknown History Apixaban [Eliquis] 2.5 mg PO BID #60 tablet 11/12/19 Unknown Rx Aspirin [Aspirin BABY CHEW TAB] 81 mg PO QDAY #30 tab.chew 11/12/19 Unknown Rx Active Meds: Active Medications Hydrophilic Ointment (Lip Therapy Vaseline) 1 applic TP Q2HR PRN PRN Reason: Dry Lips Propofol (Diprivan 10 Mg/Ml) 1,000 mg in 100 mls @ 3.402 mls/hr IV TITR GODWIN; Protocol Nicardipine HCl 50 mg/ Sodium (Chloride) 250 mls @ 25 mls/hr IV TITR GODWIN; Protocol Mannitol (Mannitol 12.5 Gm/50 Ml (25%) Vial) 100 gm IV ONCE ONE Stop: 03/03/21 05:19 Multi-Ingred Cream/Lotion/Oil/Oint (Mineral Oil/Petrolatum, White Ophth Oint 3.5 Gm) 1 applic OU Q4HR PRN PRN Reason: Dry Eye(s)
--- NOTE | 2021-03-03 05:38 | Cat Scan Report ---
CT HEAD WITHOUT CONTRAST INDICATION / CLINICAL INFORMATION: CODE STROKE PROTOCOL!! Stroke-Like Symptoms, Unresponsive. TECHNIQUE: All CT scans at this location are performed using CT dose reduction for ALARA by means of automated exposure control. COMPARISON: 11/07/19. FINDINGS: HEMORRHAGE: There is a large area of acute hemorrhage involving the mid to upper jose ramon and the lower m idbrain. The hemorrhage measures approximately 4.4 cm in greatest dimension. The hemorrhage extends p osteriorly on the left into the fourth ventricle. EXTRA-AXIAL SPACES: Moderately prominent likely related to cortical atrophy. VENTRICULAR SYSTEM: Moderately enlarged likely related to central atrophy. Mildly dilated temporal ho rns. CEREBRAL PARENCHYMA: Extensive small vessel ischemic changes in the periventricular white matter and gangliocapsular regions bilaterally. No acute territorial infarct. MIDLINE SHIFT / HERNIATION: None. CEREBELLUM / BRAINSTEM: No significant abnormality. ORBITS: Normal as visualized. SOFT TISSUES: No significant abnormality. SKULL: No significant abnormality. PARANASAL SINUSES / MASTOID AIR CELLS: Normal as visualized. ADDITIONAL FINDINGS: None. IMPRESSION: Large acute parenchymal hemorrhage involving the brainstem. There is intraventricular ext ension into the fourth ventricle with evidence of early hydrocephalus. CODE STROKE Time of Communication (MIRROR FABRICATION SUPERVISOR/CDT): 4:29 AM Licensed Practitioner Receiving Report: Dr. Graham Signer Name: Patrick Feliz MD Signed: 03/03/2021 5:33 AM Workstation Name: [id number]
[2021-03-03 05:50] LABS: Basophils % (Auto) 0.2 % (0.0-1.8); Eosinophils % (Auto) 0.4 % (0.0-4.3); Hematocrit 41.6 % (30.3-42.9); Hemoglobin 13.6 gm/dl (10.1-14.3); Lymphocytes # (Auto) 1.2 K/mm3 (1.2-5.4); Lymphocytes % (Auto) 13.9 % (13.4-35.0); Mean Corpuscular HGB Conc 33 % (30-34); Mean Corpuscular Volume 90 fl (79-97); Monocytes # (Auto) 0.4 K/mm3 (0.0-0.8); Monocytes % (Auto) 4.5 % (0.0-7.3); Platelet Count 223 K/mm3 (140-440); Red Blood Count 4.65 M/mm3 (3.65-5.03); Red Cell Distribution Width 13.8 % (13.2-15.2)
--- NOTE | 2021-03-03 05:52 | XRay Report ---
CHEST 1 VIEW 03/03/2021 5:17 AM INDICATION / CLINICAL INFORMATION: ETT placement. COMPARISON: 11/07/19 FINDINGS: SUPPORT DEVICES: There is an endotracheal tube with the tip approximately 4 cm above the neelam. The tip of the nasogastric tube overlies the distal stomach or duodenal bulb. HEART / MEDIASTINUM: The heart size and pulmonary vasculature are normal. LUNGS / PLEURA: No significant pulmonary or pleural abnormality. No pneumothorax. ADDITIONAL FINDINGS: No significant additional findings. IMPRESSION: 1. ET tube and NG tube in satisfactory position radiographically. 2. No acute abnormality. Signer Name: Patrick Feliz MD Signed: 03/03/2021 5:47 AM Workstation Name: [id number]
[2021-03-03] MEDS ORDERED: MANNITOL 20% 500 ML IV ONE (06:00)
[2021-03-03] MEDS ORDERED: niCARdipine 50 MG in SODIUM CHLORIDE 0.9% 250ML 230 ML IV SCH (06:00)
[2021-03-03 06:01] LABS: INR 1.04 (0.87-1.13)
[2021-03-03 06:02] LABS: Partial Thromboplastin Time 25.2 Sec. (24.2-36.6)
[2021-03-03 06:15] LABS: Blood Urea Nitrogen 14 mg/dL (7-17); Calcium 8.7 mg/dL (8.4-10.2); Hemolysis Index 37
[2021-03-03 06:16] LABS: Creatine Kinase MB 2.1 ng/mL (0.0-4.0)
[2021-03-03 06:19] LABS: BUN/Creatinine Ratio 23
[2021-03-03] MEDS ORDERED: niCARdipine DRIP 40 MG/200 ML BAG ONE (06:19)
[2021-03-03] MEDS ORDERED: levETIRAcetam 1000 MG/NS 0.75% 1,000 MG/100 ML BAG IV ONE (06:29)
[2021-03-03] MEDS ORDERED: niCARdipine DRIP 40 MG/200 ML BAG IV ONE (07:00)
[2021-03-03] MEDS ORDERED: ETOMIDATE 20 MG/10 ML INJ IV ONE (07:01)
[2021-03-03] MEDS ORDERED: SUCCINYLCHOLINE CHLORIDE 200 MG/10 ML INJ MDV ONE (07:01)
[2021-03-03] MEDS ORDERED: PROTHROMBIN COMPLEX HUMAN IV ONE (07:28)
[2021-03-03 07:39] VITALS: BP 111/43
== END 2021-03-03 07:30 | disposition other institution (70) ==
LOC: ED 04:44
DX: J96.90 Respiratory failure, unspecified, unspecified whether with hypoxia or hypercapnia (principal); I61.9 Nontraumatic intracerebral hemorrhage, unspecified; I10 Essential (primary) hypertension; R41.82 Altered mental status, unspecified; Z79.899 Other long term (current) drug therapy
CPT/HCPCS: 31500; 36415; 36680; 70450; 71045; 80048; 82550; 82553; 82962; 84484; 85025; 85610; 85670; 85730; 96365; 96375; 99291; 99292; J0330; J1953; J2150; J2704; J7050; J7195; 94002